=== PATIENT | male | born 1930 | race Hispanic/Latino ===

== ENCOUNTER 2017-03-12 09:19 | Inpatient (IN) | payer MEDICARE ==
[2017-03-12 09:19] VITALS: BMI 39.8
[2017-03-12 10:27] LABS: BASO % 0.4 % (0.0-2.0); EOS % 0.2 % (0.0-4.0); HEMOGLOBIN 12.5 g/dL (12.0-18.0); LYMPH # 1.1 K/uL (1.0-4.3); LYMPH % 16.3 % (20.0-40.0); MEAN CELL VOLUME 89.9 fl (80.0-94.0); MEAN CORPUSCULAR HEMOGLOBIN 28.8 pg (27.0-31.0); MEAN CORPUSCULAR HGB CONC 32.1 g/dL (33.0-37.0); MEAN PLATELET VOLUME 9.9 fl (7.2-11.7); MONO # 0.4 K/uL (0.0-0.8); MONO % 6.3 % (0.0-10.0); NEUT # 5.3 K/uL (1.8-7.0); NEUT % 76.8 % (50.0-75.0); RBC 4.32 Mil/uL (4.40-5.90); RED CELL DISTRIBUTION WIDTH 16.9 % (11.5-14.5); WHITE BLOOD COUNT 6.8 K/uL (4.8-10.8)
[2017-03-12 10:39] LABS: ALB/GLOB RATIO 1.2 (1.0-2.1); ALBUMIN 4.2 g/dL (3.5-5.0); CALCIUM 8.3 mg/dL (8.4-10.2)
[2017-03-12 10:51] LABS: TROPONIN I 0.074 ng/mL (0.00-0.120)
--- NOTE | 2017-03-12 11:18 | RAD ---
HISTORY: WEAKNESS H/O OF CHF COMPARISON: Chest x-ray performed 11/07/14 TECHNIQUE: Chest, one view. FINDINGS: LUNGS: Moderate interstitial prominence may reflect infection or edema. Central vascular congestion. Please note that chest x-ray has limited sensitivity for the detection of pulmonary masses. PLEURA: Probable small left pleural effusion. No definite pneumothorax . CARDIOVASCULAR: Median sternotomy wires, several of which appear discontinuous. Evidence of CABG. Cardiomegaly. OSSEOUS STRUCTURES: Degenerative changes. VISUALIZED UPPER ABDOMEN: Unremarkable. OTHER FINDINGS: None. IMPRESSION: Moderate interstitial prominence may reflect infection or edema. Central vascular congestion. Probable small left pleural effusion. Median sternotomy wires, several of which appear discontinuous. Evidence of CABG. Cardiomegaly.
--- NOTE | 2017-03-12 11:25 | ED PDOC ---
HPI: SOB/CHF/COPD Time Seen by Provider: 03/12/17 09:44 Chief Complaint (Nursing): Shortness Of Breath History Per: Patient History/Exam Limitations: no limitations Onset/Duration Of Symptoms: Gradual Current Symptoms Are (Timing): Still Present Context: pt co shortness of breath, generalized weakness and reproducible chest pain Exacerbating Factor(s): Exertion, Laying Flat Severity: Moderate Similar Symptoms Previously: due to chf Additional History Per: Patient, Family Additional Complaint(s): pt co shortness of breath, generalized weakness and reproducible chest pain x 2 weeks. states he was admitted at [facility] last week for the same problem last week. Past Medical History Reviewed: Historical Data, Nursing Documentation, Vital Signs Vital Signs: Last Vital Signs Temp 97 F L 03/12/17 09:36 Pulse 59 L 03/12/17 13:21 Resp 26 H 03/12/17 13:21 BP 119/70 03/12/17 13:21 Pulse Ox 97 03/12/17 13:22 - Medical History PMH: CHF, COPD, Diabetes, HTN, Hypercholesterolemia - Surgical History Surgical History: CABG, Coronary Stent (x3) - Family History Family History: States: Unknown Family Hx - Living Arrangements Living Arrangements: With Family - Social History Current smoker - smoking cessation education provided: No - Immunization History Hx Tetanus Toxoid Vaccination: No Hx Influenza Vaccination: Yes (06/29/13) Hx Pneumococcal Vaccination: Yes (06/29/13) - Home Medications Home Medications: Ambulatory Orders Medication Instructions Recorded Aspirin [Aspirin] 325 mg PO DAILY 10/31/14 Clopidogrel [Plavix] 75 mg PO DAILY 10/31/14 Furosemide [Furosemide] 20 mg PO DAILY 10/31/14 Gabapentin [Gabapentin] 300 mg PO BID 10/31/14 Insulin Glargine,Hum.rec.anlog 26 unit SC HS 11/01/14 [Lantus] Atorvastatin Calcium [Lipitor] 40 mg PO HS 11/11/14 Nebivolol [Bystolic] 2.5 mg PO DAILY 03/12/17 Tamsulosin [Flomax] 0.4 mg PO DAILY 03/12/17 - Allergies Allergies/Adverse Reactions: Allergies Allergy/AdvReac Type Severity Reaction Status Date / Time No Known Allergies Allergy Verified 03/12/17 09:36 Review of Systems ROS Statement: Except As Marked, All Systems Reviewed And Found Negative Constitutional: Negative for: Fever, Chills Cardiovascular: Positive for: Chest Pain. Negative for: Palpitations Respiratory: Positive for: Shortness of Breath. Negative for: Cough Gastrointestinal: Negative for: Nausea, Vomiting, Abdominal Pain Musculoskeletal: Negative for: Neck Pain Neurological: Negative for: Weakness, Numbness Physical Exam - Reviewed Nursing Documentation Reviewed: Yes Vital Signs Reviewed: Yes - Physical Exam Appears: Positive for: Uncomfortable Head Exam: Positive for: ATRAUMATIC, NORMAL INSPECTION, NORMOCEPHALIC Eye Exam: Positive for: Normal appearance, EOMI, PERRL Neck: Positive for: Normal, Painless ROM, Supple Cardiovascular/Chest: Positive for: Regular Rate, Rhythm, Chest Non Tender, Edema (4+ to shins bl). Negative for: Bradycardia, Tachycardia Respiratory: Positive for: Normal Breath Sounds. Negative for: Decreased Breath Sounds, Accessory Muscle Use, Crackles, Rales, Rhonchi, Stridor, Wheezing Pulses-Radial (L): 2+ Pulses-Radial (R): 2+ Gastrointestinal/Abdominal: Positive for: Normal Exam, Bowel Sounds, Soft. Negative for: Tenderness Back: Positive for: Normal Inspection. Negative for: L CVA Tenderness, R CVA Tenderness Extremity: Positive for: Normal ROM, Pedal Edema, Swelling. Negative for: Calf Tenderness Neurologic/Psych: Positive for: Alert, distribution operation supervisor II-XII, Oriented. Negative for: Motor/Sensory Deficits - Laboratory Results Result Diagrams: 03/12/17 10:15 03/12/17 10:15 - ECG ECG: Positive for: Interpreted By Sd ECG Rhythm: Positive for: Sinus Rhythm, Right Bundle Branch Block. Negative for : ST/T Changes Interpretation Of Abn EKG: rate of 67 abnormal ecg w/o chnage compared to 2014 O2 Sat by Pulse Oximetry: 97 Pulse Ox Interpretation: Normal - Radiology X-Ray: Interpreted by Sd X-Ray Interpretation: Other (mod chf) - Progress ED Course And Treament: will admit to tele per Dr cooper. gave lasiz 20 mg iv. Re-evaluation Time: 12:00 Condition: Improved Disposition - Clinical Impression Clinical Impression: CHF (congestive heart failure) - Patient ED Disposition Is Patient to be Admitted: No Counseled Patient/Family Regarding: Studies Performed, Diagnosis, Need For Followup - Disposition Disposition Time: 12:00 Condition: STABLE - Pt Status Changed To: Hospital Disposition Of: Observation - POA Present On Arrival: None
[2017-03-12 11:55] LABS: INR 1.1 (0.9-1.2); PARTIAL THROMBOPLASTIN TIME 31.3 Seconds (25.6-37.1); PROTHROMBIN TIME 12.4 Seconds (9.8-13.1)
--- NOTE | 2017-03-12 12:57 | CT ---
PROCEDURE: CT HEAD WITHOUT CONTRAST. HISTORY: head trauma COMPARISON: Noncontrast head CT performed 10/31/14 TECHNIQUE: Axial computed tomography images were obtained through the head/brain without intravenous contrast. Radiation dose: Total exam DLP = 1591.88 mGy-cm. This CT exam was performed using one or more of the following dose reduction techniques: Automated exposure control, adjustment of the mA and/or kV according to patient size, and/or use of iterative reconstruction technique. FINDINGS: HEMORRHAGE: No intracranial hemorrhage. BRAIN: Diffuse atrophy with prominence of the ventricles and sulci noted. No mass effect or edema. Bilateral basal ganglia calcifications. Moderate scattered periventricular and subcortical white matter hypodensities, which are nonspecific, but often seen with chronic microvascular ischemic disease. 8 x 5 mm hypodensity within the right cerebellum compatible with chronic infarct. 4 mm lacunar infarct within the left brainstem (series 4, image 19). Please note that MRI with diffusion imaging is more sensitive in the detection of acute ischemic event. VENTRICLES: No hydrocephalus. CALVARIUM: Unremarkable. PARANASAL SINUSES: Mild mucosal thickening of ethmoid air cells. No air-fluid levels. MASTOID AIR CELLS: Clear. OTHER FINDINGS: Partial opacification of bilateral external auditory canals, likely cerumen. IMPRESSION: Moderate scattered nonspecific white matter white matter changes. 8 x 5 mm hypodensity within the right cerebellum compatible with chronic infarct. 4 mm lacunar infarct within the left brainstem
--- NOTE | 2017-03-12 18:17 | CP.PCM.HP ---
History of Present Illness - History of Present Illness History of Present Illness: Patient 86 y/o gentleman presented in ER via EMS with the CC of SOB. He c/o gradual onset of dyspnea with orthopnea and paroxysmal nocturnal dyspnea. Dyspnea at rest and severe leg edema. weight gain . The present dyspnea is worse than previous episodes. He c/o CP, cough, and generalized weakness. He has severe hx of CAD with S/P GABG, HTN, uncontrolled diabetes. Present on Admission - Present on Admission Any Indicators Present on Admission: No Review of Systems - Constitutional Constitutional: Snoring, Weight Gain, Weakness - EENT Eyes: As Per HPI - Cardiovascular Cardiovascular: Chest Pain, Dyspnea, Dyspnea on Exertion, Edema, Lightheadedness , Paroxysmal Nocturnal Dyspnea, Pedal Edema - Respiratory Respiratory: Dyspnea, Dyspnea on Exertion, Chest Congestion - Gastrointestinal Gastrointestinal: Bloating - Musculoskeletal Musculoskeletal: As Per HPI - Integumentary Integumentary: As Per HPI - Neurological Neurological: As Per HPI - Psychiatric Psychiatric: As Per HPI - Endocrine Endocrine: As Per HPI Past Patient History - Past Medical History & Family History Past Medical History?: Yes - Past Social History Smoking Status: Former Smoker - CARDIAC Hx Cardiac Disorders: Yes Hx Hypertension: Yes - PULMONARY Hx Respiratory Disorders: Yes Hx Chronic Obstructive Pulmonary Disease (COPD): Yes - NEUROLOGICAL Hx Neurological Disorder: No - RENAL Hx Chronic Kidney Disease: No - ENDOCRINE/METABOLIC Hx Endocrine Disorders: Yes Hx Diabetes Mellitus Type 2: Yes - HEMATOLOGICAL/ONCOLOGICAL Hx Blood Disorders: No Hx AIDS: No Hx Human Immunodeficiency Virus (HIV): No - INTEGUMENTARY Hx Dermatological Problems: No - MUSCULOSKELETAL/RHEUMATOLOGICAL Hx Musculoskeletal Disorders: Yes Hx Falls: Yes Other/Comment: neuropathy - GASTROINTESTINAL Hx Gastrointestinal Disorders: No - GENITOURINARY/GYNECOLOGICAL Hx Genitourinary Disorders: No - PSYCHIATRIC Hx Psychophysiologic Disorder: No Hx Substance Use: No - SURGICAL HISTORY Hx Surgeries: Yes Hx Coronary Artery Bypass Graft: Yes (2009) Hx Coronary Stent: Yes (x3) - ANESTHESIA Hx Anesthesia: Yes Has any member of the family had a problem w/ anesthesia?: No Meds Allergies/Adverse Reactions: Allergies Allergy/AdvReac Type Severity Reaction Status Date / Time No Known Allergies Allergy Verified 03/12/17 09:36 Physical Exam - Constitutional Appears: In Acute Distress, Chronically Ill - Head Exam Head Exam: ATRAUMATIC - Eye Exam Eye Exam: Normal appearance, PERRL Pupil Exam: NORMAL ACCOMODATION, PERRL - ENT Exam ENT Exam: Mucous Membranes Moist - Neck Exam Neck exam: Positive for: Full Rom - Respiratory Exam Respiratory Exam: Decreased Breath Sounds, Rales, Respiratory Distress - Cardiovascular Exam Cardiovascular Exam: REGULAR RHYTHM, JVD, +S1, +S2 - GI/Abdominal Exam GI & Abdominal Exam: Distended, Soft - Rectal Exam Rectal Exam: Deferred - Extremities Exam Extremities exam: Positive for: pedal edema - Neurological Exam Neurological exam: Alert, CN II-XII Intact, Oriented x3 - Psychiatric Exam Psychiatric exam: Anxious - Skin Skin Exam: Dry, Warm Results - Vital Signs Recent Vital Signs: Last Vital Signs Temp 98.2 F 03/12/17 15:38 Pulse 48 L 03/12/17 15:38 Resp 20 03/12/17 15:49 BP 116/69 03/12/17 15:38 Pulse Ox 94 L 03/12/17 15:38 - Labs Result Diagrams: 03/12/17 10:15 03/12/17 10:15 Labs: Laboratory Results - last 24 hr 03/12/17 16:49 POC Glucose (mg/dL) 91 Assessment & Plan (1) CHF (congestive heart failure) Status: Acute (2) Diabetes 1.5, 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
[2017-03-12] MEDS: Enoxaparin 30 mg Syringe SC SCH (18:37)
[2017-03-12 21:40] LABS: TROPONIN I 0.102 ng/mL (0.00-0.120)
[2017-03-12] MEDS: Insulin Regular 100 units/ml SC SCH (22:25)
[2017-03-12] MEDS: Insulin Detemir 100 Units/ml Inj SC SCH (22:26)
[2017-03-13 00:01] LABS: SQUAMOUS EPITHIAL < 1 /hpf (0-5); URINE BILIRUBIN NEGATIVE (NEGATIVE); URINE BLOOD NEGATIVE (NEGATIVE); URINE CLARITY CLEAR (Clear); URINE COLOR STRAW (YELLOW); URINE GLUCOSE (UA) NEG (Normal); URINE LEUKOCYTE ESTERASE NEG Leu/uL (Negative); URINE NITRATE NEGATIVE (NEGATIVE); URINE PROTEIN NEGATIVE (NEGATIVE); URINE UROBILINOGEN 0.2-1.0 mg/dL (0.2-1.0)
[2017-03-13] MEDS: Insulin Regular 100 units/ml SC SCH ×4 (06:14→23:37)
[2017-03-13 07:20] LABS: CALCIUM 8.5 mg/dL (8.4-10.2)
[2017-03-13] MEDS: Enoxaparin 30 mg Syringe SC SCH (09:02)
--- NOTE | 2017-03-13 10:30 | CP.PCM.PN ---
Subjective - Date & Time of Evaluation Date of Evaluation: 03/13/17 Time of Evaluation: 10:32 - Subjective Subjective: Patient still in SOB on O2 NC. Severely fluid over loaded. In de compensated CHF systolic. Will continue diuresis. Will follow cardiology consult and ECHO. Will repeat CXR. Objective - Vital Signs/Intake and Output Vital Signs (last 24 hours): Temp Pulse Resp BP Pulse Ox 99.1 F 67 18 111/60 93 L 03/13/17 08:00 03/13/17 09:01 03/13/17 08:00 03/13/17 09:03 03/13/17 08:00 Intake and Output: 03/12/17 03/13/17 23:59 11:59 Intake Total 180 Output Total 950 Balance -770 - Medications Medications: Current Medications Aspirin (Aspirin) 325 mg PO DAILY [facility] Last Admin: 03/13/17 09:02 Dose: 325 mg Atorvastatin Calcium (Lipitor) 40 mg PO HS [facility] Last Admin: 03/12/17 21:39 Dose: 40 mg Clopidogrel Bisulfate (Plavix) 75 mg PO DAILY [facility] Last Admin: 03/13/17 09:01 Dose: 75 mg Enoxaparin Sodium (Lovenox) 30 mg SC DAILY [facility] PRN Reason: Protocol Last Admin: 03/13/17 09:02 Dose: 30 mg Furosemide (Lasix) 40 mg IV Q12 [facility] Last Admin: 03/13/17 09:03 Dose: 40 mg Gabapentin (Neurontin) 300 mg PO BID [facility] Last Admin: 03/13/17 09:00 Dose: 300 mg Insulin Detemir (Levemir) 26 units SC [facility] Last Admin: 03/12/17 22:26 Dose: 26 units Insulin Human Regular (Humulin R) 0 units SC ACCU-CHECK [facility] PRN Reason: Protocol Last Admin: 03/13/17 06:14 Dose: Not Given Metoprolol Tartrate (Lopressor) 12.5 mg PO BID [facility] Last Admin: 03/13/17 09:01 Dose: 12.5 mg Tamsulosin HCl (Flomax) 0.4 mg PO DAILY [facility] Last Admin: 03/13/17 09:02 Dose: 0.4 mg - Labs Labs: 03/13/17 05:00 PT 12.4 Seconds (9.8-13.1) 03/12/17 10:15 INR 1.1 (0.9-1.2) 03/12/17 10:15 APTT 31.3 Seconds (25.6-37.1) 03/12/17 10:15 - Constitutional Appears: In Acute Distress, Chronically Ill - Head Exam Head Exam: ATRAUMATIC, NORMAL INSPECTION, NORMOCEPHALIC - Eye Exam Eye Exam: Normal appearance - Neck Exam Neck Exam: Full ROM - Respiratory Exam Respiratory Exam: Decreased Breath Sounds, Prolonged Expiratory Phase, Rales - Cardiovascular Exam Cardiovascular Exam: REGULAR RHYTHM, +S1, +S2 - GI/Abdominal Exam GI & Abdominal Exam: Distended, Soft, Normal Bowel Sounds - Extremities Exam Extremities Exam: Pedal Edema - Neurological Exam Neurological Exam: Alert, Awake, CN II-XII Intact, Oriented x3 - Psychiatric Exam Psychiatric exam: Normal Affect - Skin Skin Exam: Pallor Assessment and Plan (1) CHF (congestive heart failure) Status: Acute (2) Diabetes 1.5, 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
--- NOTE | 2017-03-13 11:29 | RAD ---
PROCEDURE: CHEST RADIOGRAPH, 1 VIEW HISTORY: CHF COMPARISON: 03/12/2017. FINDINGS: LUNGS: There is mild pulmonary venous congestion improved since yesterday and persistent prominent central vasculature. PLEURA: No pneumothorax or pleural fluid seen. CARDIOVASCULAR: There is persistent moderate cardiomegaly. Status post CABG with OSSEOUS STRUCTURES: No significant abnormalities. VISUALIZED UPPER ABDOMEN: Normal. OTHER FINDINGS: None. IMPRESSION: Improving congestive heart failure.
--- NOTE | 2017-03-13 11:41 | CARD ---
APPROVED REPORT EKG Measurement Heart [id number] <Conclusion> Sinus rhythm with 1st degree AV block Left axis deviation Right bundle branch block Possible Lateral infarct, age undetermined Inferior infarct, age undetermined Abnormal ECG
--- NOTE | 2017-03-13 12:35 | CP.PCM.CON ---
History of Present Illness - History of Present Illness History of Present Illness: 86 y/o [place] male h/o CAD S/P Cabg 2008 at [facility], underwent PCI X3 after CABG by Dr. Jerry the most recent one was 2 1/2 years ago, COPD on home O2. Recently hospitalized at [facility] for SOB, Presented with SOB and chest tightness No Fever or chills Review of Systems - Constitutional Constitutional: Weakness - Cardiovascular Cardiovascular: Chest Pain, Dyspnea Past Patient History - Past Medical History & Family History Past Medical History?: Yes - Past Social History Smoking Status: Former Smoker - CARDIAC Hx Cardiac Disorders: Yes (CABG, PCI X3) Hx Heart Attack: Yes Hx Hypertension: Yes - PULMONARY Hx Respiratory Disorders: Yes Hx Chronic Obstructive Pulmonary Disease (COPD): Yes - NEUROLOGICAL Hx Neurological Disorder: No - RENAL Hx Chronic Kidney Disease: No - ENDOCRINE/METABOLIC Hx Endocrine Disorders: Yes Hx Diabetes Mellitus Type 2: Yes - HEMATOLOGICAL/ONCOLOGICAL Hx Blood Disorders: No Hx AIDS: No Hx Human Immunodeficiency Virus (HIV): No - INTEGUMENTARY Hx Dermatological Problems: No - MUSCULOSKELETAL/RHEUMATOLOGICAL Hx Musculoskeletal Disorders: Yes Hx Falls: Yes Other/Comment: neuropathy - GASTROINTESTINAL Hx Gastrointestinal Disorders: No - GENITOURINARY/GYNECOLOGICAL Hx Genitourinary Disorders: No - PSYCHIATRIC Hx Psychophysiologic Disorder: No Hx Substance Use: No - SURGICAL HISTORY Hx Surgeries: Yes Hx Coronary Artery Bypass Graft: Yes (2008) Hx Coronary Stent: Yes (x3) - ANESTHESIA Hx Anesthesia: Yes Has any member of the family had a problem w/ anesthesia?: No Meds Allergies/Adverse Reactions: Allergies Allergy/AdvReac Type Severity Reaction Status Date / Time No Known Allergies Allergy Verified 03/12/17 09:36 - Medications Medications: Current Medications Aspirin (Aspirin) 325 mg PO DAILY [facility] Last Admin: 03/13/17 09:02 Dose: 325 mg Atorvastatin Calcium (Lipitor) 40 mg PO HS [facility] Last Admin: 03/12/17 21:39 Dose: 40 mg Clopidogrel Bisulfate (Plavix) 75 mg PO DAILY [facility] Last Admin: 03/13/17 09:01 Dose: 75 mg Enoxaparin Sodium (Lovenox) 30 mg SC DAILY [facility] PRN Reason: Protocol Last Admin: 03/13/17 09:02 Dose: 30 mg Furosemide (Lasix) 40 mg IV Q12 [facility] Last Admin: 03/13/17 09:03 Dose: 40 mg Gabapentin (Neurontin) 300 mg PO BID [facility] Last Admin: 03/13/17 09:00 Dose: 300 mg Insulin Detemir (Levemir) 26 units SC [facility] Last Admin: 03/12/17 22:26 Dose: 26 units Insulin Human Regular (Humulin R) 0 units SC ACCU-CHECK [facility] PRN Reason: Protocol Last Admin: 03/13/17 11:48 Dose: 2 u Metoprolol Tartrate (Lopressor) 12.5 mg PO BID [facility] Last Admin: 03/13/17 09:01 Dose: 12.5 mg Tamsulosin HCl (Flomax) 0.4 mg PO DAILY [facility] Last Admin: 03/13/17 09:02 Dose: 0.4 mg Results - Vital Signs Recent Vital Signs: Last Vital Signs Temp 98.2 F 03/13/17 12:23 Pulse 58 L 03/13/17 12:23 Resp 20 03/13/17 12:23 BP 121/66 03/13/17 12:23 Pulse Ox 95 03/13/17 12:23 - Labs Result Diagrams: 03/12/17 10:15 03/13/17 05:00 Labs: Laboratory Results - last 24 hr 03/13/17 11:25 POC Glucose (mg/dL) 190 H Assessment & Plan - Assessment and Plan (Free Text) Assessment: Chest pain [place] ruled out CHF, acute diastolic COPD CAD S/P CABG HTN EKG NSR, 1st degree AVB RBBB 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 Last Admin: 03/12/17 21:39 Dose: 40 mg Clopidogrel Bisulfate (Plavix) 75 mg PO DAILY [facility] Last Admin: 03/13/17 09:01 Dose: 75 mg Enoxaparin Sodium (Lovenox) 30 mg SC DAILY [facility] PRN Reason: Protocol Last Admin: 03/13/17 09:02 Dose: 30 mg Furosemide (Lasix) 40 mg IV Q12 [facility] Last Admin: 03/13/17 09:03 Dose: 40 mg Gabapentin (Neurontin) 300 mg PO BID [facility] Last Admin: 03/13/17 09:00 Dose: 300 mg Insulin Detemir (Levemir) 26 units SC [facility] Last Admin: 03/12/17 22:26 Dose: 26 units Insulin Human Regular (Humulin R) 0 units SC ACCU-CHECK [facility] PRN Reason: Protocol Last Admin: 03/13/17 11:48 Dose: 2 u Metoprolol Tartrate (Lopressor) 12.5 mg PO BID [facility] Last Admin: 03/13/17 09:01 Dose: 12.5 mg Tamsulosin HCl (Flomax) 0.4 mg PO DAILY [facility] Last Admin: 03/13/17 09:02 Dose: 0.4 mg I will review Echo Discussed with PMD
[2017-03-13] MEDS: Insulin Detemir 100 Units/ml Inj SC SCH (22:00)
[2017-03-14] MEDS: Insulin Regular 100 units/ml SC SCH ×4 (06:34→22:17)
[2017-03-14 07:32] LABS: CALCIUM 8.3 mg/dL (8.4-10.2)
[2017-03-14] MEDS: Enoxaparin 30 mg Syringe SC SCH (09:22)
--- NOTE | 2017-03-14 10:29 | CP.PCM.PN ---
Subjective - Date & Time of Evaluation Date of Evaluation: 03/14/17 Time of Evaluation: 10:26 - Subjective Subjective: SOB improved , no C/P Objective - Vital Signs/Intake and Output Vital Signs (last 24 hours): Temp Pulse Resp BP Pulse Ox 98.4 F 72 20 118/64 96 03/14/17 05:00 03/14/17 09:21 03/14/17 05:00 03/14/17 09:22 03/14/17 05:00 Intake and Output: 03/14/17 03/14/17 06:59 18:59 Intake Total 240 Balance 240 - Medications Medications: Current Medications Aspirin (Aspirin) 325 mg PO DAILY [facility] Last Admin: 03/14/17 09:25 Dose: 325 mg Atorvastatin Calcium (Lipitor) 40 mg PO HS [facility] Last Admin: 03/13/17 21:52 Dose: 40 mg Clopidogrel Bisulfate (Plavix) 75 mg PO DAILY [facility] Last Admin: 03/14/17 09:21 Dose: 75 mg Enoxaparin Sodium (Lovenox) 30 mg SC DAILY [facility] PRN Reason: Protocol Last Admin: 03/14/17 09:22 Dose: 30 mg Furosemide (Lasix) 40 mg IV Q12 [facility] Last Admin: 03/14/17 09:22 Dose: 40 mg Gabapentin (Neurontin) 300 mg PO BID [facility] Last Admin: 03/14/17 09:21 Dose: 300 mg Insulin Detemir (Levemir) 26 units SC [facility] Last Admin: 03/13/17 22:00 Dose: Not Given Insulin Human Regular (Humulin R) 0 units SC ACCU-CHECK [facility] PRN Reason: Protocol Last Admin: 03/14/17 06:34 Dose: Not Given Metoprolol Tartrate (Lopressor) 12.5 mg PO BID [facility] Last Admin: 03/14/17 09:21 Dose: 12.5 mg Tamsulosin HCl (Flomax) 0.4 mg PO DAILY [facility] Last Admin: 03/14/17 09:20 Dose: 0.4 mg - Labs Labs: 03/14/17 05:05 PT 12.4 Seconds (9.8-13.1) 03/12/17 10:15 INR 1.1 (0.9-1.2) 03/12/17 10:15 APTT 31.3 Seconds (25.6-37.1) 03/12/17 10:15 - Constitutional Appears: Well - Head Exam Head Exam: NORMOCEPHALIC - Neck Exam Neck Exam: Full ROM - Respiratory Exam Respiratory Exam: Decreased Breath Sounds, Rhonchi - GI/Abdominal Exam GI & Abdominal Exam: Normal Bowel Sounds - Extremities Exam Extremities Exam: Pedal Edema Assessment and Plan - Assessment and Plan (Free Text) Assessment: CHF CAD Cont current IV lasix,lipitor, lpressor, lovenox, plavis Discussed with PMD
--- NOTE | 2017-03-14 10:50 | US ---
HISTORY: r/u ascites COMPARISON: 11/02/2014 TECHNIQUE: Sonographic evaluation of the abdomen. FINDINGS: LIVER: Measures 15.1 cm. Hepatopedal blood flow. Fatty infiltration manifest ultrasonographically as increased echogenicity of the liver parenchyma. No mass. No intrahepatic bile duct dilatation. GALLBLADDER: Unremarkable. No gallstones. COMMON BILE DUCT: Measures 5.6 mm. No stones. No dilatation. PANCREAS: Obscured by overlying bowel gas. Non diagnostic assessment of the pancreas. RIGHT KIDNEY: Measures 4.9 x 14.4cm. Cortical atrophy. Incidental finding(s): Lower pole cyst 4.4 x 4.7 cm with septation. Upper pole cyst 3.5 cm. LEFT KIDNEY: Measures 5.1 x 10.9 Cm. Renal cortical atrophy. No calculus, mass, or hydronephrosis.Incidental finding(s): Multiple simple renal cysts. SPLEEN: Normal in size and contour. No mass. AORTA: No aneurysmal dilatation. IVC: Unremarkable. OTHER FINDINGS: None. IMPRESSION: No acute findings related to/accounting for the clinical presentation. Limitations of the current examination suboptimal visualization the gallbladder, nonvisualization of the pancreas. Simple and complex renal cysts identified on a prior CT scan 11/02/2014.
--- NOTE | 2017-03-14 11:56 | PQF GENQUE ---
Dr. Cabral, Please specify the type of heart failure in your progress notes: Combined systolic and diastolic Diastolic Systolic Other (please specify) OR: Clinically unable to determine 03/13/2017: Attending note: in decompensated CHF systolic versus 03/13/2017:Cardiology note: CHF, acute diastolic This form is a permanent part of the medical record Clarification of your documentation is requested to better reflect the severity of illness and intensity of treatment of your patient. Indicators present [] Specify: [X]Systolic [] Specify: [] [] Specify: [] [] Specify: [] Location in the medical record that reflects the above clinical findings: [] Treatment Provided: [] PHYSICIAN'S RESPONSE Based on your medical judgment of the clinical indicators outlined above please clarify the following: [x] Practitioner response [] If unable to determine, please check the box, sign and date. Present On Admission (POA) Indicator: [x] Present at the time of admission [] Not present at the time of admission [] Clinically Undetermined In responding to this query, please exercise your independent professional judgment. The fact that a question is asked does not imply that any particular answer is desired or expected. Thank you for your clarification on this documentation. If you have any questions please call. * Thank you, Gloria Whittaker RN BSN ext. #[phone] (ext. #[phone] out of service at this time ) ZITA
--- NOTE | 2017-03-14 12:01 | PQF GENQUE ---
Dr. Cabral, In agreement with the BMI:40.9 listed in the EMR? If in agreement please add the BMI to your progress note OR:Unable to determine OR: Disagree RD:consult pending This form is a permanent part of the medical record Clarification of your documentation is requested to better reflect the severity of illness and intensity of treatment of your patient. Indicators present [] Specify: [x] Morbid obesity [] Specify: [] [] Specify: [] [] Specify: [] Location in the medical record that reflects the above clinical findings: [] Treatment Provided: [] PHYSICIAN'S RESPONSE Based on your medical judgment of the clinical indicators outlined above please clarify the following: [x] Practitioner response [] If unable to determine, please check the box, sign and date. Present On Admission (POA) Indicator: [x] Present at the time of admission [] Not present at the time of admission [] Clinically Undetermined In responding to this query, please exercise your independent professional judgment. The fact that a question is asked does not imply that any particular answer is desired or expected. Thank you for your clarification on this documentation. If you have any questions please call. * Thank you, Gloria Whittaker RN BSN ext. #[phone] MTDD
--- NOTE | 2017-03-14 12:16 | PQF GENQUE ---
Dr Cabral, Is there an associated diagnosis to go along with the following labs: BUN: 26->24->23 Creatinine:1.8->1.8->1.9 Est GFR (Af Amer/Non-Af Amer):44/36->44/36-.41/34 OR: Disagree OR; Other explanation of clinical findings Current diagnoses include: Acute CHF:receiving Lasix IV q 12 hrs. This form is a permanent part of the medical record Clarification of your documentation is requested to better reflect the severity of illness and intensity of treatment of your patient. Indicators present [] Specify: [x]renal failure [] Specify: [] [] Specify: [] [] Specify: [] Location in the medical record that reflects the above clinical findings: [] Treatment Provided: [] PHYSICIAN'S RESPONSE Based on your medical judgment of the clinical indicators outlined above please clarify the following: [x] Practitioner response [] If unable to determine, please check the box, sign and date. Present On Admission (POA) Indicator: [x] Present at the time of admission [] Not present at the time of admission [] Clinically Undetermined In responding to this query, please exercise your independent professional judgment. The fact that a question is asked does not imply that any particular answer is desired or expected. Thank you for your clarification on this documentation. If you have any questions please call. * Thank you, Gloria Whittaker RN BSN ext. #[phone] MTDD
--- NOTE | 2017-03-14 12:34 | CP.PCM.PN ---
Subjective - Date & Time of Evaluation Date of Evaluation: 03/14/17 Time of Evaluation: 12:40 - Subjective Subjective: Patient still in dyspnea on 3 L NC, severe dyspnea on minimal exertion, fatigue , edema persistent and severe and massive. Objective - Vital Signs/Intake and Output Vital Signs (last 24 hours): Temp Pulse Resp BP Pulse Ox 98.4 F 72 20 118/64 96 03/14/17 05:00 03/14/17 09:21 03/14/17 05:00 03/14/17 09:22 03/14/17 05:00 - Medications Medications: Current Medications Aspirin (Aspirin) 325 mg PO DAILY [facility] Last Admin: 03/14/17 09:25 Dose: 325 mg Atorvastatin Calcium (Lipitor) 40 mg PO HS [facility] Last Admin: 03/13/17 21:52 Dose: 40 mg Clopidogrel Bisulfate (Plavix) 75 mg PO DAILY [facility] Last Admin: 03/14/17 09:21 Dose: 75 mg Enoxaparin Sodium (Lovenox) 30 mg SC DAILY [facility] PRN Reason: Protocol Last Admin: 03/14/17 09:22 Dose: 30 mg Furosemide (Lasix) 40 mg IV Q12 [facility] Last Admin: 03/14/17 09:22 Dose: 40 mg Gabapentin (Neurontin) 300 mg PO BID [facility] Last Admin: 03/14/17 09:21 Dose: 300 mg Insulin Detemir (Levemir) 26 units SC [facility] Last Admin: 03/13/17 22:00 Dose: Not Given Insulin Human Regular (Humulin R) 0 units SC ACCU-CHECK [facility] PRN Reason: Protocol Last Admin: 03/14/17 06:34 Dose: Not Given Metoprolol Tartrate (Lopressor) 12.5 mg PO BID [facility] Last Admin: 03/14/17 09:21 Dose: 12.5 mg Tamsulosin HCl (Flomax) 0.4 mg PO DAILY [facility] Last Admin: 03/14/17 09:20 Dose: 0.4 mg - Labs Labs: 03/14/17 05:05 PT 12.4 Seconds (9.8-13.1) 03/12/17 10:15 INR 1.1 (0.9-1.2) 03/12/17 10:15 APTT 31.3 Seconds (25.6-37.1) 03/12/17 10:15 - Constitutional Appears: In Acute Distress, Chronically Ill - Eye Exam Eye Exam: EOMI, Normal appearance, PERRL Pupil Exam: PERRL - ENT Exam ENT Exam: Mucous Membranes Moist - Neck Exam Neck Exam: Full ROM - Respiratory Exam Respiratory Exam: Decreased Breath Sounds, Rales - Cardiovascular Exam Cardiovascular Exam: REGULAR RHYTHM, +S1, +S2, Murmur - GI/Abdominal Exam GI & Abdominal Exam: Distended, Soft - Extremities Exam Extremities Exam: Pedal Edema - Neurological Exam Neurological Exam: Alert, Awake, CN II-XII Intact, Oriented x3 - Psychiatric Exam Psychiatric exam: Anxious Assessment and Plan (1) CHF (congestive heart failure) Status: Acute (2) Diabetes 1.5, 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 Consider TCU when stable
--- NOTE | 2017-03-14 13:04 | CARD ---
APPROVED REPORT EXAM: Two-dimensional and M-mode echocardiogram with Doppler and color Doppler. Other Information Quality : AverageRhythm : NSR INDICATION Congestive Heart Failure Surgery/Intervention CABG: Status/Post Intervention: Stent 2D DIMENSIONS IVSd1.49 (0.7-1.1cm)LVDd3.62 (3.9-5.9cm) LVOT Diameter1.55 (1.8-2.4cm)PWd1.29 (0.7-1.1cm) IVSs1.85 (0.8-1.2cm)LVDs1.89 (2.5-4.0cm) FS (%) 47.9 %PWs1.76 (0.8-1.2cm) M-Mode DIMENSIONS Left Atrium (MM)5.54 (2.5-4.0cm)IVSd1.25 (0.7-1.1cm) Aortic Root3.32 (2.2-3.7cm)LVDd4.77 (4.0-5.6cm) Aortic Cusp Exc.1.54 (1.5-2.0cm)PWd1.09 (0.7-1.1cm) IVSs2.06 cmFS (%) 42 % LVDs2.79 (2.0-3.8cm)PWs1.62 cm Aortic Valve AoV Peak Eddzoeww450.1cm/sAoV VTI62.0cmAO Peak GR.29mmHg LVOT Peak Wszokqws47.9cm/sLVOT VTI21.68cmAO Mean GR.17mmHg ERIK (VMAX)0.65nj3CPN (VTI)0.31cm2 Mitral Valve MV E Pducbxoh862.5cm/sMV DECEL TFJO088ivWN A Owysuyln580.2cm/s MV KMI56ucN/A ratio0.9MVA (PHT)2.67cm2 TDI E/Lateral E'0.0E/Medial E'0.0 Tricuspid Valve TR Peak Wtymyqoq829hz/sRAP MPZPLFGW30slHfBP Peak Gr.33mmHg TIEW46lbRa LEFT VENTRICLE The left ventricle is normal size. There is mild concentric left ventricular hypertrophy. The left ventricular function is normal. The left ventricular ejection fraction is 55% There is normal LV segmental wall motion. Transmitral Doppler flow pattern is Grade II-pseudonormal filling dynamics. No left ventricle thrombus noted on this study. There is no ventricular septal defect visualized. There is no left ventricular aneurysm. There is no mass noted in the left ventricle. RIGHT VENTRICLE The right ventricle is normal size. There is normal right ventricular wall thickness. The right ventricular systolic function is normal. ATRIA The left atrium size is normal. The right atrium size is normal. The interatrial septum is intact with no evidence for an atrial septal defect. AORTIC VALVE The aortic valve is moderately to severely calcified. No aortic regurgitation is present. There is mild to moderate valvular aortic stenosis. Calculated aortic valve area is 1.2 cm2 with maximum pressure gradient of 29 mmHg and mean pressure gradient of 17 mmHg. There is no aortic valvular vegetation. MITRAL VALVE Mitral annular calcification is moderate to severe. There is no evidence of mitral valve prolapse. There is no mitral valve stenosis. There is no mitral valve regurgitation noted. TRICUSPID VALVE The tricuspid valve is normal in structure and function. There is trace to mild tricuspid regurgitation. Right ventricular systolic pressure is estimated at 30-40 mmHg. There is no tricuspid valve prolapse or vegetation. There is no tricuspid valve stenosis. PULMONIC VALVE The pulmonary valve is normal in structure and function. There is no pulmonic valvular regurgitation. There is no pulmonic valvular stenosis. GREAT VESSELS The aortic root is normal in size. The ascending aorta is normal in size. The IVC is normal in size and collapses >50% with inspiration. PERICARDIAL EFFUSION The pericardium appears normal. There is no pleural effusion. <Conclusion> Normal LV Systolic Function Moderate Aortic Stenosis ERIK 1.2 cm2 Mild Concentric LVH
[2017-03-14] MEDS: Insulin Detemir 100 Units/ml Inj SC SCH (22:18)
[2017-03-15] MEDS: Insulin Regular 100 units/ml SC SCH ×3 (09:09→23:36)
[2017-03-15] MEDS: Enoxaparin 30 mg Syringe SC SCH (09:10)
--- NOTE | 2017-03-15 09:32 | CP.PCM.PN ---
Subjective - Date & Time of Evaluation Date of Evaluation: 03/15/17 Time of Evaluation: 09:33 - Subjective Subjective: Patient still in dyspnea on 3 L NC, severe dyspnea on minimal exertion, fatigue , edema persistent and severe and massive. Same improvement since yesterday. He can not tolerated an increase of furosemide because of hypotensive response to it. Will continue present rx. For possible TCU in am. Objective - Vital Signs/Intake and Output Vital Signs (last 24 hours): Temp Pulse Resp BP Pulse Ox 98.2 F 73 18 117/62 98 03/15/17 08:00 03/15/17 09:10 03/15/17 08:00 03/15/17 09:10 03/15/17 08:00 Intake and Output: 03/14/17 03/15/17 23:59 11:59 Intake Total 200 Output Total 500 Balance -300 - Medications Medications: Current Medications Aspirin (Aspirin) 325 mg PO DAILY [facility] Last Admin: 03/15/17 09:13 Dose: 325 mg Atorvastatin Calcium (Lipitor) 40 mg PO [facility] Last Admin: 03/14/17 22:13 Dose: 40 mg Clopidogrel Bisulfate (Plavix) 75 mg PO DAILY [facility] Last Admin: 03/15/17 09:11 Dose: 75 mg Enoxaparin Sodium (Lovenox) 30 mg SC DAILY [facility] PRN Reason: Protocol Last Admin: 03/15/17 09:10 Dose: 30 mg Furosemide (Lasix) 40 mg IV Q12 [facility] Last Admin: 03/15/17 09:09 Dose: 40 mg Gabapentin (Neurontin) 300 mg PO BID [facility] Last Admin: 03/15/17 09:11 Dose: 300 mg Insulin Detemir (Levemir) 26 units SC [facility] Last Admin: 03/14/17 22:18 Dose: 26 units Insulin Human Regular (Humulin R) 0 units SC ACCU-CHECK [facility] PRN Reason: Protocol Last Admin: 03/15/17 09:09 Dose: 2 u Metoprolol Tartrate (Lopressor) 12.5 mg PO BID [facility] Last Admin: 03/15/17 09:10 Dose: 12.5 mg Tamsulosin HCl (Flomax) 0.4 mg PO DAILY [facility] Last Admin: 03/15/17 09:09 Dose: 0.4 mg - Labs Labs: 03/14/17 05:05 PT 12.4 Seconds (9.8-13.1) 03/12/17 10:15 INR 1.1 (0.9-1.2) 03/12/17 10:15 APTT 31.3 Seconds (25.6-37.1) 03/12/17 10:15 - Constitutional Appears: Chronically Ill - Head Exam Head Exam: ATRAUMATIC, NORMAL INSPECTION, NORMOCEPHALIC - Eye Exam Eye Exam: Normal appearance Pupil Exam: PERRL - ENT Exam ENT Exam: Mucous Membranes Moist - Neck Exam Neck Exam: Full ROM - Respiratory Exam Respiratory Exam: Decreased Breath Sounds, Prolonged Expiratory Phase, Rales - Cardiovascular Exam Cardiovascular Exam: REGULAR RHYTHM, +S1, +S2 - GI/Abdominal Exam GI & Abdominal Exam: Distended, Normal Bowel Sounds - Extremities Exam Extremities Exam: Pedal Edema - Neurological Exam Neurological Exam: Alert, Awake, CN II-XII Intact, Oriented x3 - Psychiatric Exam Psychiatric exam: Anxious Assessment and Plan (1) CHF (congestive heart failure) Status: Acute (2) Diabetes 1.5, 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
[2017-03-15 11:13] LABS: CALCIUM 8.6 mg/dL (8.4-10.2)
[2017-03-15] MEDS: Insulin Detemir 100 Units/ml Inj SC SCH (23:51)
[2017-03-16] MEDS: Insulin Regular 100 units/ml SC SCH ×3 (06:25→16:57)
[2017-03-16 10:43] LABS: CALCIUM 8.8 mg/dL (8.4-10.2)
--- NOTE | 2017-03-16 14:09 | CP.PCM.PN ---
Subjective - Date & Time of Evaluation Date of Evaluation: 03/16/17 Time of Evaluation: 14:08 - Subjective Subjective: SOB improved, no chest pain Objective - Vital Signs/Intake and Output Vital Signs (last 24 hours): Temp Pulse Resp BP Pulse Ox 98.1 F 63 18 127/74 92 L 03/16/17 13:00 03/16/17 13:00 03/16/17 13:00 03/16/17 13:00 03/16/17 13:00 - Medications Medications: Current Medications Aspirin (Aspirin) 325 mg PO DAILY [facility] Last Admin: 03/16/17 09:53 Dose: 325 mg Atorvastatin Calcium (Lipitor) 40 mg PO [facility] Last Admin: 03/15/17 23:50 Dose: 40 mg Clopidogrel Bisulfate (Plavix) 75 mg PO DAILY [facility] Last Admin: 03/16/17 09:50 Dose: 75 mg Gabapentin (Neurontin) 300 mg PO BID [facility] Last Admin: 03/16/17 09:50 Dose: 300 mg Insulin Detemir (Levemir) 26 units SC [facility] Last Admin: 03/15/17 23:51 Dose: 26 units Insulin Human Regular (Humulin R) 0 units SC ACCU-CHECK [facility] PRN Reason: Protocol Last Admin: 03/16/17 12:40 Dose: 6 units Metoprolol Tartrate (Lopressor) 12.5 mg PO BID [facility] Last Admin: 03/16/17 09:49 Dose: Not Given Tamsulosin HCl (Flomax) 0.4 mg PO DAILY [facility] Last Admin: 03/16/17 09:50 Dose: 0.4 mg - Labs Labs: 03/16/17 09:30 PT 12.4 Seconds (9.8-13.1) 03/12/17 10:15 INR 1.1 (0.9-1.2) 03/12/17 10:15 APTT 31.3 Seconds (25.6-37.1) 03/12/17 10:15 - Head Exam Head Exam: NORMOCEPHALIC - Eye Exam Eye Exam: Normal appearance - ENT Exam ENT Exam: Normal Exam - Neck Exam Neck Exam: Normal Inspection - Respiratory Exam Respiratory Exam: NORMAL BREATHING PATTERN - Cardiovascular Exam Cardiovascular Exam: REGULAR RHYTHM - Extremities Exam Extremities Exam: Pedal Edema Assessment and Plan - Assessment and Plan (Free Text) Assessment: CAF exacerbation CKD CAD S/P CABG COPD Plan: Cont.Aspirin (Aspirin) 325 mg PO DAILY [facility] Last Admin: 03/16/17 09:53 Dose: 325 mg Atorvastatin Calcium (Lipitor) 40 mg PO HS [facility] Last Admin: 03/15/17 23:50 Dose: 40 mg Clopidogrel Bisulfate (Plavix) 75 mg PO DAILY [facility] Last Admin: 03/16/17 09:50 Dose: 75 mg Gabapentin (Neurontin) 300 mg PO BID [facility] Last Admin: 03/16/17 09:50 Dose: 300 mg Insulin Detemir (Levemir) 26 units SC [facility] Last Admin: 03/15/17 23:51 Dose: 26 units Insulin Human Regular (Humulin R) 0 units SC ACCU-CHECK [facility] PRN Reason: Protocol Last Admin: 03/16/17 12:40 Dose: 6 units Metoprolol Tartrate (Lopressor) 12.5 mg PO BID [facility] Last Admin: 03/16/17 09:49 Dose: Not Given Tamsulosin HCl (Flomax) 0.4 mg PO DAILY [facility] Last Admin: 03/16/17 09:50 Dose: 0.4 mg Reduce Lasix to 40 mg IVP daily
[2017-03-16 15:32] VITALS: RESP 20
--- NOTE | 2017-03-16 18:25 | CP.PCM.DIS ---
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 mg/g Status: Chronic Hospital Course - Lab Results Lab Results: Most Recent Lab Values WBC 6.8 K/uL (4.8-10.8) 03/12/17 10:15 RBC 4.32 Mil/uL (4.40-5.90) L 03/12/17 10:15 Hgb 12.5 g/dL (12.0-18.0) 03/12/17 10:15 Hct 38.9 % (35.0-51.0) 03/12/17 10:15 MCV 89.9 fl (80.0-94.0) 03/12/17 10:15 MCH 28.8 pg (27.0-31.0) 03/12/17 10:15 MCHC 32.1 g/dL (33.0-37.0) L 03/12/17 10:15 RDW 16.9 % (11.5-14.5) H 03/12/17 10:15 Plt Count 156 K/uL (130-400) 03/12/17 10:15 MPV 9.9 fl (7.2-11.7) 03/12/17 10:15 Neut % (Auto) 76.8 % (50.0-75.0) H 03/12/17 10:15 Lymph % (Auto) 16.3 % (20.0-40.0) L 03/12/17 10:15 [place] % (Auto) 6.3 % (0.0-10.0) 03/12/17 10:15 Eos % (Auto) 0.2 % (0.0-4.0) 03/12/17 10:15 Baso % (Auto) 0.4 % (0.0-2.0) 03/12/17 10:15 Neut # 5.3 K/uL (1.8-7.0) 03/12/17 10:15 Lymph # 1.1 K/uL (1.0-4.3) 03/12/17 10:15 [place] # 0.4 K/uL (0.0-0.8) 03/12/17 10:15 Eos # 0.0 K/uL (0.0-0.7) 03/12/17 10:15 Baso # 0.0 K/uL (0.0-0.2) 03/12/17 10:15 PT 12.4 Seconds (9.8-13.1) 03/12/17 10:15 INR 1.1 (0.9-1.2) 03/12/17 10:15 APTT 31.3 Seconds (25.6-37.1) 03/12/17 10:15 Sodium 141 mmol/l (132-148) 03/16/17 09:30 Potassium 4.1 MMOL/L (3.6-5.0) 03/16/17 09:30 Chloride 96 mmol/L (98-107) L 03/16/17 09:30 Carbon Dioxide 35 mmol/L (22-30) H 03/16/17 09:30 Anion Gap 14 (10-20) 03/16/17 09:30 BUN 26 mg/dl (9-20) H 03/16/17 09:30 Creatinine 1.7 mg/dL (0.8-1.5) H 03/16/17 09:30 Est GFR ( Amer) 47 03/16/17 09:30 Est GFR (Non-Af Amer) 39 03/16/17 09:30 POC Glucose (mg/dL) 301 mg/dL (65-110) H 03/16/17 15:43 Random Glucose 233 mg/dL (75-110) H 03/16/17 09:30 Hemoglobin A1c 9.8 % (4.2-6.5) H 03/12/17 20:39 Calcium 8.8 mg/dL (8.4-10.2) 03/16/17 09:30 Total Bilirubin 1.0 mg/dl (0.2-1.3) 03/12/17 10:15 AST 79 U/L (17-59) H D 03/12/17 10:15 ALT 90 U/L (21-72) H D 03/12/17 10:15 Alkaline Phosphatase 87 U/L (38-126) 03/12/17 10:15 Troponin I 0.1020 ng/mL (0.00-0.120) 03/12/17 20:39 NT-Pro-B Natriuret Pep 2200 pg/ml (0-900) H 03/12/17 20:39 Total Protein 7.6 G/DL (6.3-8.2) 03/12/17 10:15 Albumin 4.2 g/dL (3.5-5.0) 03/12/17 10:15 Globulin 3.4 gm/dL (2.2-3.9) 03/12/17 10:15 Albumin/Globulin Ratio 1.2 (1.0-2.1) 03/12/17 10:15 TSH 3rd Generation 1.58 mIU/ML (0.46-4.68) 03/12/17 20:39 Urine Color Straw (YELLOW) 03/12/17 23:22 Urine Clarity Clear (Clear) 03/12/17 23:22 Urine pH 7.0 (5.0-8.0) 03/12/17 23:22 Ur Specific [place] < 1.005 (1.003-1.030) 03/12/17 23:22 Urine Protein Negative mg/dL (NEGATIVE) 03/12/17 23:22 Urine Glucose (UA) Neg mg/dL (Normal) 03/12/17 23:22 Urine Ketones Negative mg/dL (NEGATIVE) 03/12/17 23:22 Urine Blood Negative (NEGATIVE) 03/12/17 23:22 Urine Nitrate Negative (NEGATIVE) 03/12/17 23:22 Urine Bilirubin Negative (NEGATIVE) 03/12/17 23:22 Urine Urobilinogen 0.2-1.0 mg/dL (0.2-1.0) 03/12/17 23:22 Ur Leukocyte Esterase Neg [place]/uL (Negative) 03/12/17 23:22 Ur Squamous Epith Cells < 1 /hpf (0-5) 03/12/17 23:22 - Hospital Course Hospital Course: Patient with CHF, , DM2, renal failure, debility. Presented with severe decompensated systolic and diastolic failure. Responded to rx. For TCU Discharge Exam - Head Exam Head Exam: ATRAUMATIC, NORMAL INSPECTION, NORMOCEPHALIC - Eye Exam Eye Exam: EOMI, Normal appearance - ENT Exam ENT Exam: Mucous Membranes Moist - Neck Exam Neck exam: Full Rom - Respiratory Exam Respiratory Exam: Decreased Breath Sounds, Clear to PA & Lateral - Cardiovascular Exam Cardiovascular Exam: REGULAR RHYTHM, +S1, +S2 - GI/Abdominal Exam GI & Abdominal Exam: Normal Bowel Sounds - Extremities Exam Extremities exam: pedal edema - Neurological Exam Neurological exam: Alert, CN II-XII Intact, Oriented x3, Reflexes Normal - Psychiatric Exam Psychiatric exam: Normal Affect - Skin Skin Exam: Normal Color Discharge Plan - Follow Up Plan Condition: GUARDED Disposition: TRANSF TO SNF
[2017-03-16 19:10] VITALS: BP 111/67; PULSE 69; TEMP 98.4; O2SAT 95
== END 2017-03-16 20:55 | DRG 291 ==
LOC: H.ER 09:19 → H.ERHOLD 13:28 → H.TEL 14:57 → OBSVTOIN 03-13 10:27 → H.TEL 03-14 10:41
PROVIDERS: ADMIT Internal Medicine; ATTEND Internal Medicine
DX: I13.0 Hypertensive heart and chronic kidney disease with heart failure and stage 1 through stage 4 chronic kidney disease, or unspecified chronic kidney disease (principal); I50.43 Acute on chronic combined systolic (congestive) and diastolic (congestive) heart failure; E11.21 Type 2 diabetes mellitus with diabetic nephropathy; E11.40 Type 2 diabetes mellitus with diabetic neuropathy, unspecified; Z68.41 Body mass index [BMI] 40.0-44.9, adult; N18.3 Chronic kidney disease, stage 3 (moderate); J44.9 Chronic obstructive pulmonary disease, unspecified; I35.0 Nonrheumatic aortic (valve) stenosis; E66.01 Morbid (severe) obesity due to excess calories; E11.22 Type 2 diabetes mellitus with diabetic chronic kidney disease; I44.0 Atrioventricular block, first degree; I45.10 Unspecified right bundle-branch block; I25.10 Atherosclerotic heart disease of native coronary artery without angina pectoris; I25.2 Old myocardial infarction; E78.00 Pure hypercholesterolemia, unspecified; Z99.81 Dependence on supplemental oxygen; Z95.1 Presence of aortocoronary bypass graft; Z95.5 Presence of coronary angioplasty implant and graft; Z87.891 Personal history of nicotine dependence; Z79.82 Long term (current) use of aspirin; Z79.02 Long term (current) use of antithrombotics/antiplatelets

== ENCOUNTER 2017-03-16 18:42 | Inpatient (IN) | payer OTHER, BC ==
[2017-03-16 19:32] VITALS: BMI 40.1
[2017-03-16] MEDS: Insulin Detemir 100 Units/ml Inj SC SCH (23:01)
[2017-03-17] MEDS: Insulin Regular 100 units/ml SC SCH ×5 (00:11→22:02)
[2017-03-17 06:23] LABS: CALCIUM 8.6 mg/dL (8.4-10.2)
--- NOTE | 2017-03-17 12:14 | CP.PCM.HP ---
History of Present Illness - History of Present Illness History of Present Illness: Patient 86 y/o gentleman presented in ER via EMS with the CC of SOB. He c/o gradual onset of dyspnea with orthopnea and paroxysmal nocturnal dyspnea. Dyspnea at rest and severe leg edema. weight gain . The present dyspnea is worse than previous episodes. He c/o CP, cough, and generalized weakness. He has severe hx of CAD with S/P GABG, HTN, uncontrolled diabetes. He responded for now in TCU. Present on Admission - Present on Admission Any Indicators Present on Admission: No Review of Systems - Constitutional Constitutional: As Per HPI - EENT Eyes: As Per HPI Ears: As Per HPI - Cardiovascular Cardiovascular: As Per HPI - Respiratory Respiratory: As Per HPI - Gastrointestinal Gastrointestinal: As Per HPI - Musculoskeletal Musculoskeletal: As Per HPI - Neurological Neurological: As Per HPI Past Patient History - Past Medical History & Family History Past Medical History?: Yes - Past Social History Smoking Status: Former Smoker - CARDIAC Hx Cardiac Disorders: Yes (CABG, PCI X3) Hx Heart Attack: Yes Hx Hypertension: Yes - PULMONARY Hx Respiratory Disorders: Yes Hx Chronic Obstructive Pulmonary Disease (COPD): Yes - NEUROLOGICAL Hx Neurological Disorder: No - RENAL Hx Chronic Kidney Disease: No - ENDOCRINE/METABOLIC Hx Endocrine Disorders: Yes Hx Diabetes Mellitus Type 2: Yes - HEMATOLOGICAL/ONCOLOGICAL Hx Blood Disorders: No Hx AIDS: No Hx Human Immunodeficiency Virus (HIV): No - INTEGUMENTARY Hx Dermatological Problems: No - MUSCULOSKELETAL/RHEUMATOLOGICAL Hx Musculoskeletal Disorders: Yes Hx Falls: Yes Other/Comment: neuropathy - GASTROINTESTINAL Hx Gastrointestinal Disorders: No - GENITOURINARY/GYNECOLOGICAL Hx Genitourinary Disorders: No - PSYCHIATRIC Hx Psychophysiologic Disorder: No Hx Substance Use: No - SURGICAL HISTORY Hx Surgeries: Yes Hx Coronary Artery Bypass Graft: Yes (2009) Hx Coronary Stent: Yes (x3) - ANESTHESIA Hx Anesthesia: Yes Hx Anesthesia Reactions: No Meds Allergies/Adverse Reactions: Allergies Allergy/AdvReac Type Severity Reaction Status Date / Time No Known Allergies Allergy Verified 03/12/17 09:36 Physical Exam - Constitutional Appears: Chronically Ill - Head Exam Head Exam: ATRAUMATIC, NORMAL INSPECTION, NORMOCEPHALIC - Eye Exam Eye Exam: EOMI, Normal appearance - ENT Exam ENT Exam: Mucous Membranes Moist - Neck Exam Neck exam: Positive for: Full Rom - Respiratory Exam Respiratory Exam: Decreased Breath Sounds, Clear to Auscultation Bilateral - Cardiovascular Exam Cardiovascular Exam: REGULAR RHYTHM, +S1, +S2 - GI/Abdominal Exam GI & Abdominal Exam: Diminished Bowel Sounds, Normal Bowel Sounds - Extremities Exam Extremities exam: Positive for: pedal edema - Neurological Exam Neurological exam: Alert, CN II-XII Intact, Oriented x3, Reflexes Normal - Psychiatric Exam Psychiatric exam: Normal Affect Results - Vital Signs Recent Vital Signs: Last Vital Signs Temp 97.5 F L 03/17/17 08:00 Pulse 72 03/17/17 08:59 Resp 20 03/17/17 08:00 BP 125/65 03/17/17 08:59 Pulse Ox 98 03/17/17 08:00 - Labs Result Diagrams: 03/17/17 06:05 Labs: Laboratory Results - last 24 hr 03/16/17 03/17/17 03/17/17 21:37 06:00 06:05 Sodium 142 Potassium 4.0 Chloride 97 L Carbon Dioxide 35 H Anion Gap 14 BUN 29 H Creatinine 1.7 H Est GFR ( Amer) 47 Est GFR (Non-Af Amer) 39 POC Glucose (mg/dL) 264 H 191 H Random Glucose 175 H Calcium 8.6 03/17/17 10:58 Sodium Potassium Chloride Carbon Dioxide Anion Gap BUN Creatinine Est GFR ( Amer) Est GFR (Non-Af Amer) POC Glucose (mg/dL) 276 H Random Glucose Calcium Assessment & Plan (1) Debility Status: Acute (2) BMI greater than 40 Status: Chronic (3) CHF (congestive heart failure) Status: Chronic (4) Diabetes 1.5, 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
--- NOTE | 2017-03-17 16:35 | CP.PCM.CON ---
History of Present Illness - History of Present Illness History of Present Illness: 86 y/o [place] male h/o CAd S/P CABG 2009 followed by [place] [facility] [place] most recent one was <2 years ago H/O Moderate H/o COPD on home O2 h/o HTN, DM was recently admitted for Exacerbation of CHF which improved after IV lasix Review of Systems - Constitutional Constitutional: Weight Gain - EENT Eyes: absent: As Per HPI, Blind Spots, Blurred Vision, Change in Vision, Decreased Night Vision, Diplopia, Discharge, Dry Eye, Exophthalmos, Floaters, Irritation, Itchy Eyes, Loss of Peripheral Vision, Pain, Photophobia, Requires Corrective Lenses, Sees Flashes, Spots in Vision, Tunnel Vision, Other Visual Disturbances, Loss of Vision, Other Ears: absent: As Per HPI, Decreased Hearing, Ear Discharge, Ear Pain, Tinnitus, Abnormal Hearing, Disequilibrium, Dizziness, Other Nose/Mouth/Throat: absent: As Per HPI, Epistaxis, Nasal Congestion, Nasal Discharge, Nasal Obstruction, Nasal Trauma, Nose Pain, Post Nasal Drip, Sinus Pain, Sinus Pressure, Bleeding Gums, Change in Voice, Dental Pain, Dry Mouth, Dysphagia, Halitosis, Hoarsness, Lip Swelling, Mouth Lesions, Mouth Pain, Odynophagia, Sore Throat, Throat Swelling, Tongue Swelling, Facial Pain, Neck Pain, Neck Mass, Other - Cardiovascular Cardiovascular: Paroxysmal Nocturnal Dyspnea, Pedal Edema - Respiratory Respiratory: Cough Past Patient History - Past Medical History & Family History Past Medical History?: Yes - Past Social History Smoking Status: Former Smoker - CARDIAC Hx Cardiac Disorders: Yes (CABG, PCI X3) Hx Heart Attack: Yes Hx Hypertension: Yes - PULMONARY Hx Respiratory Disorders: Yes Hx Chronic Obstructive Pulmonary Disease (COPD): Yes - NEUROLOGICAL Hx Neurological Disorder: No - RENAL Hx Chronic Kidney Disease: No - ENDOCRINE/METABOLIC Hx Endocrine Disorders: Yes Hx Diabetes Mellitus Type 2: Yes - HEMATOLOGICAL/ONCOLOGICAL Hx Blood Disorders: No Hx AIDS: No Hx Human Immunodeficiency Virus (HIV): No - INTEGUMENTARY Hx Dermatological Problems: No - MUSCULOSKELETAL/RHEUMATOLOGICAL Hx Musculoskeletal Disorders: Yes Hx Falls: Yes Other/Comment: neuropathy - GASTROINTESTINAL Hx Gastrointestinal Disorders: No - GENITOURINARY/GYNECOLOGICAL Hx Genitourinary Disorders: No - PSYCHIATRIC Hx Psychophysiologic Disorder: No Hx Substance Use: No - SURGICAL HISTORY Hx Surgeries: Yes Hx Coronary Artery Bypass Graft: Yes (2009) Hx Coronary Stent: Yes (x3) - ANESTHESIA Hx Anesthesia: Yes Hx Anesthesia Reactions: No Meds Allergies/Adverse Reactions: Allergies Allergy/AdvReac Type Severity Reaction Status Date / Time No Known Allergies Allergy Verified 03/12/17 09:36 - Medications Medications: Current Medications Acetaminophen (Tylenol 325mg Tab) 650 mg PO Q4 PRN PRN Reason: Pain, Mild (1-3) Aspirin (Aspirin) 325 mg PO DAILY [facility] Last Admin: 03/17/17 09:00 Dose: 325 mg Atorvastatin Calcium (Lipitor) 40 mg PO HS [facility] Clopidogrel Bisulfate (Plavix) 75 mg PO DAILY [facility] Last Admin: 03/17/17 08:59 Dose: 75 mg Docusate Sodium (Colace) 100 mg PO BID [facility] Furosemide (Lasix) 40 mg PO DAILY [facility] Last Admin: 03/17/17 08:59 Dose: 40 mg Gabapentin (Neurontin) 300 mg PO BID [facility] Last Admin: 03/17/17 08:59 Dose: 300 mg Insulin Detemir (Levemir) 26 units SC [facility] Last Admin: 03/16/17 23:01 Dose: 26 u Insulin Human Regular (Humulin R) 0 units SC ACCU-CHECK [facility] PRN Reason: Protocol Last Admin: 03/17/17 12:51 Dose: 3 u Metoprolol Tartrate (Lopressor) 12.5 mg PO Q12 [facility] Last Admin: 03/17/17 08:59 Dose: 12.5 mg Tamsulosin HCl (Flomax) 0.4 mg PO DAILY [facility] Last Admin: 03/17/17 09:00 Dose: 0.4 mg Physical Exam - Constitutional Appears: Well - Head Exam Head Exam: NORMAL INSPECTION - Eye Exam Eye Exam: Normal appearance - Neck Exam Neck exam: Positive for: Normal Inspection - Respiratory Exam Respiratory Exam: Rhonchi - Cardiovascular Exam Cardiovascular Exam: REGULAR RHYTHM - Extremities Exam Extremities exam: Positive for: pedal edema Results - Vital Signs Recent Vital Signs: Last Vital Signs Temp 97.5 F L 03/17/17 16:05 Pulse 73 03/17/17 16:05 Resp 20 03/17/17 16:05 BP 129/75 03/17/17 16:05 Pulse Ox 95 03/17/17 16:05 - Labs Result Diagrams: 03/17/17 06:05 Labs: Laboratory Results - last 24 hr 03/16/17 03/17/17 03/17/17 21:37 06:00 06:05 Sodium 142 Potassium 4.0 Chloride 97 L Carbon Dioxide 35 H Anion Gap 14 BUN 29 H Creatinine 1.7 H Est GFR ( Amer) 47 Est GFR (Non-Af Amer) 39 POC Glucose (mg/dL) 264 H 191 H Random Glucose 175 H Calcium 8.6 03/17/17 03/17/17 10:58 16:17 Sodium Potassium Chloride Carbon Dioxide Anion Gap BUN Creatinine Est GFR ( Amer) Est GFR (Non-Af Amer) POC Glucose (mg/dL) 276 H 275 H Random Glucose Calcium Assessment & Plan - Assessment and Plan (Free Text) Assessment: CHf, acute diastolic, improved CAD S/P CABG and PCI Moderate HTN DM CKD COPD Plan: Cont. Acetaminophen (Tylenol 325mg Tab) 650 mg PO Q4 PRN PRN Reason: Pain, Mild (1-3) Aspirin (Aspirin) 325 mg PO DAILY [facility] Last Admin: 03/17/17 09:00 Dose: 325 mg Atorvastatin Calcium (Lipitor) 40 mg PO HS [facility] Clopidogrel Bisulfate (Plavix) 75 mg PO DAILY [facility] Last Admin: 03/17/17 08:59 Dose: 75 mg Docusate Sodium (Colace) 100 mg PO BID [facility] Furosemide (Lasix) 40 mg PO DAILY [facility] Last Admin: 03/17/17 08:59 Dose: 40 mg Gabapentin (Neurontin) 300 mg PO BID [facility] Last Admin: 03/17/17 08:59 Dose: 300 mg Insulin Detemir (Levemir) 26 units SC [facility] Last Admin: 03/16/17 23:01 Dose: 26 u Insulin Human Regular (Humulin R) 0 units SC ACCU-CHECK [facility] PRN Reason: Protocol Last Admin: 03/17/17 12:51 Dose: 3 u Metoprolol Tartrate (Lopressor) 12.5 mg PO Q12 [facility] Last Admin: 03/17/17 08:59 Dose: 12.5 mg Tamsulosin HCl (Flomax) 0.4 mg PO DAILY [facility] Last Admin: 03/17/17 09:00 Dose: 0.4 mg needs no intervention at this time
[2017-03-17] MEDS ORDERED: INSULIN GLARGINE HUM REC ANLOG 26 UNIT SC SCH (22:00)
[2017-03-17] MEDS: Insulin Detemir 100 Units/ml Inj SC SCH (22:05)
[2017-03-18] MEDS: Insulin Regular 100 units/ml SC SCH ×4 (07:06→22:53)
--- NOTE | 2017-03-18 08:13 | CP.PCM.CON ---
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 PT IS WELL KNOWN TO ME FROM OFFICE VISITS PT IS BEING SEEN IN MY OFFICE Q 3 MOTH FOR RENAL F/U OVER THE LAST 2-3 YEARS RENAL FUNCTION HAS BEEN STABLE .. RENAL FUNCTION IS ALSO STABLE ON THIS ADMITION PT IS CURRENTLY IN SUB ACUT UNIT AFTER AN ADDMITIN FOR CHF EXACERBATION PT IS VERY NICE GEOFF BUT HE IS GENERALY NON COMLIANT WITH DIET History of Present Illness: Patient 86 y/o gentleman presented in ER via EMS with the CC of SOB. He c/o gradual onset of dyspnea with orthopnea and paroxysmal nocturnal dyspnea. Dyspnea at rest and severe leg edema. weight gain . The present dyspnea is worse than previous episodes. He c/o CP, cough, and generalized weakness. He has severe hx of CAD with S/P GABG, HTN, uncontrolled diabetes. He responded for now in TCU. Past Patient History - Past Medical History & Family History Past Medical History?: Yes - Past Social History Smoking Status: Former Smoker - CARDIAC Hx Cardiac Disorders: Yes (CABG, PCI X3) Hx Heart Attack: Yes Hx Hypertension: Yes - PULMONARY Hx Respiratory Disorders: Yes Hx Chronic Obstructive Pulmonary Disease (COPD): Yes - NEUROLOGICAL Hx Neurological Disorder: No - RENAL Hx Chronic Kidney Disease: No - ENDOCRINE/METABOLIC Hx Endocrine Disorders: Yes Hx Diabetes Mellitus Type 2: Yes - HEMATOLOGICAL/ONCOLOGICAL Hx Blood Disorders: No Hx AIDS: No Hx Human Immunodeficiency Virus (HIV): No - INTEGUMENTARY Hx Dermatological Problems: No - MUSCULOSKELETAL/RHEUMATOLOGICAL Hx Musculoskeletal Disorders: Yes Hx Falls: Yes Other/Comment: neuropathy - GASTROINTESTINAL Hx Gastrointestinal Disorders: No - GENITOURINARY/GYNECOLOGICAL Hx Genitourinary Disorders: No - PSYCHIATRIC Hx Psychophysiologic Disorder: No Hx Substance Use: No - SURGICAL HISTORY Hx Surgeries: Yes Hx Coronary Artery Bypass Graft: Yes (2008) Hx Coronary Stent: Yes (x3) - ANESTHESIA Hx Anesthesia: Yes Hx Anesthesia Reactions: No Meds Allergies/Adverse Reactions: Allergies Allergy/AdvReac Type Severity Reaction Status Date / Time No Known Allergies Allergy Verified 03/12/17 09:36 - Medications Medications: Current Medications Acetaminophen (Tylenol 325mg Tab) 650 mg PO Q4 PRN PRN Reason: Pain, Mild (1-3) Aspirin (Aspirin) 325 mg PO DAILY [facility] Last Admin: 03/17/17 09:00 Dose: 325 mg Atorvastatin Calcium (Lipitor) 40 mg PO HS [facility] Last Admin: 03/17/17 22:09 Dose: 40 mg Clopidogrel Bisulfate (Plavix) 75 mg PO DAILY [facility] Last Admin: 03/17/17 08:59 Dose: 75 mg Docusate Sodium (Colace) 100 mg PO BID [facility] Last Admin: 03/17/17 17:23 Dose: 100 mg Furosemide (Lasix) 40 mg PO DAILY [facility] Last Admin: 03/17/17 08:59 Dose: 40 mg Gabapentin (Neurontin) 300 mg PO BID [facility] Last Admin: 03/17/17 17:30 Dose: 300 mg Insulin Detemir (Levemir) 26 units SC HS [facility] Last Admin: 03/17/17 22:05 Dose: 26 u Insulin Human Regular (Humulin R) 0 units SC ACCU-CHECK [facility] PRN Reason: Protocol Last Admin: 03/18/17 07:06 Dose: 3 u Metoprolol Tartrate (Lopressor) 12.5 mg PO Q12 [facility] Last Admin: 03/17/17 22:12 Dose: 12.5 mg Tamsulosin HCl (Flomax) 0.4 mg PO DAILY [facility] Last Admin: 03/17/17 09:00 Dose: 0.4 mg Results - Vital Signs Recent Vital Signs: Last Vital Signs Temp 97.9 F 03/18/17 07:57 Pulse 92 H 03/18/17 07:57 Resp 20 03/18/17 07:57 BP 118/75 03/18/17 07:57 Pulse Ox 92 L 03/18/17 07:57 - Labs Result Diagrams: 03/17/17 06:05 Labs: Laboratory Results - last 24 hr 03/17/17 03/17/17 03/17/17 10:58 16:17 20:11 POC Glucose (mg/dL) 276 H 275 H 243 H 03/18/17 05:44 POC Glucose (mg/dL) 269 H Assessment & Plan - Assessment and Plan (Free Text) Assessment: CKD STAGE 3 WTH eGFR AT 39 ML / M RENAL METABOLIC BONE DISEASE H/O BPH CHF .. 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 2G NA .. 2 GM K .. 50 GM PROTIEN .. 1800 CONG ADA .. 1000 CC FR DIETARY CONSULT AND COUNCELING FOR ABOVE DIET ADD ARBS .. SLOWLY AND GRADUALLY FOR RENAL PROTECTION EFFECT AND FOR CHF MANAGEMENT ADD VIT D C/O DIURETICS WILL F/U CLOSELY - Date & Time Date: 03/17/17 Time: 16:00
[2017-03-18] MEDS: Multivitamin Vitamin B Complex (Nephro-Vite) Tab PO SCH (14:09)
--- NOTE | 2017-03-18 15:57 | CP.PCM.PN ---
Subjective - Date & Time of Evaluation Date of Evaluation: 03/18/17 Time of Evaluation: 15:55 - Subjective Subjective: c/o SOB upon exertion No dizziness Objective - Vital Signs/Intake and Output Vital Signs (last 24 hours): Temp Pulse Resp BP Pulse Ox 97.9 F 78 20 120/77 95 03/18/17 07:57 03/18/17 09:37 03/18/17 07:57 03/18/17 09:37 03/18/17 09:37 - Medications Medications: Current Medications Acetaminophen (Tylenol 325mg Tab) 650 mg PO Q4 PRN PRN Reason: Pain, Mild (1-3) Aspirin (Aspirin) 325 mg PO DAILY [facility] Last Admin: 03/18/17 08:31 Dose: 325 mg Atorvastatin Calcium (Lipitor) 40 mg PO HS [facility] Last Admin: 03/17/17 22:09 Dose: 40 mg Cholecalciferol (Vitamin D) 2,000 iu PO DAILY [facility] Clopidogrel Bisulfate (Plavix) 75 mg PO DAILY [facility] Last Admin: 03/18/17 08:27 Dose: 75 mg Docusate Sodium (Colace) 100 mg PO BID [facility] Last Admin: 03/18/17 08:27 Dose: 100 mg Doxercalciferol (Hectorol) 0.5 mcg PO DAILY [facility] Last Admin: 03/18/17 14:09 Dose: 0.5 mcg Furosemide (Lasix) 40 mg PO BID [facility] Gabapentin (Neurontin) 300 mg PO BID [facility] Last Admin: 03/18/17 08:27 Dose: 300 mg Insulin Detemir (Levemir) 26 units SC HS [facility] Last Admin: 03/17/17 22:05 Dose: 26 u Insulin Human Regular (Humulin R) 0 units SC ACCU-CHECK [facility] PRN Reason: Protocol Last Admin: 03/18/17 07:06 Dose: 3 u Losartan Potassium (Cozaar) 25 mg PO DAILY [facility] Last Admin: 03/18/17 14:08 Dose: 25 mg Metoprolol Tartrate (Lopressor) 12.5 mg PO Q12 [facility] Last Admin: 03/18/17 08:26 Dose: 12.5 mg Tamsulosin HCl (Flomax) 0.4 mg PO DAILY [facility] Last Admin: 03/18/17 08:28 Dose: 0.4 mg Vitamin B Complex/Vit C/Folic Acid (Nephro-Gerald) 1 tab PO DAILY [facility] Last Admin: 03/18/17 14:09 Dose: 1 tab - Labs Labs: 03/17/17 06:05 - Constitutional Appears: Well - Head Exam Head Exam: ATRAUMATIC - Eye Exam Eye Exam: Normal appearance - Neck Exam Neck Exam: Normal Inspection - Respiratory Exam Respiratory Exam: Rhonchi - Cardiovascular Exam Cardiovascular Exam: REGULAR RHYTHM - Extremities Exam Extremities Exam: Pedal Edema Assessment and Plan - Assessment and Plan (Free Text) Assessment: CHF CAD S/P CABG CKD COPD Plan: Cont. Acetaminophen (Tylenol 325mg Tab) 650 mg PO Q4 PRN PRN Reason: Pain, Mild (1-3) Aspirin (Aspirin) 325 mg PO DAILY [facility] Last Admin: 03/18/17 08:31 Dose: 325 mg Atorvastatin Calcium (Lipitor) 40 mg PO HS [facility] Last Admin: 03/17/17 22:09 Dose: 40 mg Cholecalciferol (Vitamin D) 2,000 iu PO DAILY [facility] Clopidogrel Bisulfate (Plavix) 75 mg PO DAILY [facility] Last Admin: 03/18/17 08:27 Dose: 75 mg Docusate Sodium (Colace) 100 mg PO BID [facility] Last Admin: 03/18/17 08:27 Dose: 100 mg Doxercalciferol (Hectorol) 0.5 mcg PO DAILY [facility] Last Admin: 03/18/17 14:09 Dose: 0.5 mcg Gabapentin (Neurontin) 300 mg PO BID [facility] Last Admin: 03/18/17 08:27 Dose: 300 mg Insulin Detemir (Levemir) 26 units SC [facility] Last Admin: 03/17/17 22:05 Dose: 26 u Insulin Human Regular (Humulin R) 0 units SC ACCU-CHECK [facility] PRN Reason: Protocol Last Admin: 03/18/17 07:06 Dose: 3 u Losartan Potassium (Cozaar) 25 mg PO DAILY [facility] Last Admin: 03/18/17 14:08 Dose: 25 mg Metoprolol Tartrate (Lopressor) 12.5 mg PO Q12 [facility] Last Admin: 03/18/17 08:26 Dose: 12.5 mg Tamsulosin HCl (Flomax) 0.4 mg PO DAILY [facility] Last Admin: 03/18/17 08:28 Dose: 0.4 mg Vitamin B Complex/Vit C/Folic Acid (Nephro-Gerald) 1 tab PO DAILY [facility] Last Admin: 03/18/17 14:09 Dose: 1 tab Increase Furosemide (Lasix) 40 mg PO BID [facility]
[2017-03-18] MEDS: Insulin Detemir 100 Units/ml Inj SC SCH (21:34)
[2017-03-19] MEDS: Insulin Regular 100 units/ml SC SCH ×4 (06:52→22:57)
[2017-03-19] MEDS: Multivitamin Vitamin B Complex (Nephro-Vite) Tab PO SCH (08:57)
[2017-03-19] MEDS ORDERED: Insulin Detemir 100 Units/ml Inj SC SCH (09:16)
--- NOTE | 2017-03-19 09:53 | CP.PCM.PN ---
Subjective - Date & Time of Evaluation Date of Evaluation: 03/19/17 Time of Evaluation: 09:53 - Subjective Subjective: Still SOB on exertion Objective - Vital Signs/Intake and Output Vital Signs (last 24 hours): Temp Pulse Resp BP Pulse Ox 97.2 F L 72 20 124/77 76 L 03/19/17 07:44 03/19/17 08:57 03/19/17 07:44 03/19/17 08:57 03/19/17 07:44 - Medications Medications: Current Medications Acetaminophen (Tylenol 325mg Tab) 650 mg PO Q4 PRN PRN Reason: Pain, Mild (1-3) Aspirin (Aspirin) 325 mg PO DAILY [facility] Last Admin: 03/19/17 08:55 Dose: 325 mg Atorvastatin Calcium (Lipitor) 40 mg PO HS [facility] Last Admin: 03/18/17 21:37 Dose: 40 mg Cholecalciferol (Vitamin D) 2,000 iu PO DAILY [facility] Last Admin: 03/19/17 08:57 Dose: 2,000 iu Clopidogrel Bisulfate (Plavix) 75 mg PO DAILY [facility] Last Admin: 03/19/17 08:57 Dose: 75 mg Docusate Sodium (Colace) 100 mg PO BID [facility] Last Admin: 03/19/17 08:56 Dose: 100 mg Doxercalciferol (Hectorol) 0.5 mcg PO DAILY [facility] Last Admin: 03/19/17 08:56 Dose: 0.5 mcg Furosemide (Lasix) 40 mg PO BID [facility] Last Admin: 03/19/17 08:57 Dose: 40 mg Gabapentin (Neurontin) 300 mg PO BID [facility] Last Admin: 03/19/17 08:57 Dose: 300 mg Insulin Detemir (Levemir) [address] [facility] Insulin Human Regular (Humulin R) 0 units SC ACCU-CHECK [facility] PRN Reason: Protocol Last Admin: 03/19/17 06:52 Dose: 3 u Losartan Potassium (Cozaar) 25 mg PO DAILY [facility] Last Admin: 03/19/17 08:56 Dose: 25 mg Metoprolol Tartrate (Lopressor) 12.5 mg PO Q12 [facility] Last Admin: 03/19/17 08:57 Dose: 12.5 mg Tamsulosin HCl (Flomax) 0.4 mg PO DAILY [facility] Last Admin: 03/19/17 08:56 Dose: 0.4 mg Vitamin B Complex/Vit C/Folic Acid (Nephro-Gerald) 1 tab PO DAILY [facility] Last Admin: 03/19/17 08:57 Dose: 1 tab - Labs Labs: 03/17/17 06:05 - Constitutional Appears: Chronically Ill - Head Exam Head Exam: ATRAUMATIC, NORMAL INSPECTION, NORMOCEPHALIC - Eye Exam Eye Exam: Normal appearance Pupil Exam: PERRL - ENT Exam ENT Exam: Mucous Membranes Moist - Neck Exam Neck Exam: Full ROM - Respiratory Exam Respiratory Exam: Decreased Breath Sounds - Cardiovascular Exam Cardiovascular Exam: REGULAR RHYTHM, +S1, +S2 - GI/Abdominal Exam GI & Abdominal Exam: Distended, Soft - Extremities Exam Extremities Exam: Pedal Edema - Neurological Exam Neurological Exam: Alert, Awake, CN II-XII Intact, Oriented x3 Assessment and Plan (1) Debility Status: Acute (2) BMI greater than 40 Status: Chronic (3) CHF (congestive heart failure) Status: Chronic (4) Diabetes 1.5, 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
[2017-03-19 11:14] LABS: CALCIUM 8.8 mg/dL (8.4-10.2)
--- NOTE | 2017-03-19 15:57 | CP.PCM.PN ---
Subjective - Date & Time of Evaluation Date of Evaluation: 03/19/17 Time of Evaluation: 15:54 - Subjective Subjective: SOB requiring nasal O2 Objective - Vital Signs/Intake and Output Vital Signs (last 24 hours): Temp Pulse Resp BP Pulse Ox 97.2 F L 72 20 124/77 94 L 03/19/17 07:44 03/19/17 08:57 03/19/17 07:44 03/19/17 08:57 03/19/17 10:00 - Medications Medications: Current Medications Acetaminophen (Tylenol 325mg Tab) 650 mg PO Q4 PRN PRN Reason: Pain, Mild (1-3) Aspirin (Aspirin) 325 mg PO DAILY [facility] Last Admin: 03/19/17 08:55 Dose: 325 mg Atorvastatin Calcium (Lipitor) 40 mg PO HS [facility] Last Admin: 03/18/17 21:37 Dose: 40 mg Cholecalciferol (Vitamin D) 2,000 iu PO DAILY [facility] Last Admin: 03/19/17 08:57 Dose: 2,000 iu Clopidogrel Bisulfate (Plavix) 75 mg PO DAILY [facility] Last Admin: 03/19/17 08:57 Dose: 75 mg Docusate Sodium (Colace) 100 mg PO BID [facility] Last Admin: 03/19/17 08:56 Dose: 100 mg Doxercalciferol (Hectorol) 0.5 mcg PO DAILY [facility] Last Admin: 03/19/17 08:56 Dose: 0.5 mcg Furosemide (Lasix) 40 mg IV BID [facility] Gabapentin (Neurontin) 300 mg PO BID [facility] Last Admin: 03/19/17 08:57 Dose: 300 mg Insulin Detemir (Levemir) 28 units SC [facility] Insulin Human Regular (Humulin R) 0 units SC ACCU-CHECK [facility] PRN Reason: Protocol Last Admin: 03/19/17 13:35 Dose: 5 u Losartan Potassium (Cozaar) 25 mg PO DAILY [facility] Last Admin: 03/19/17 08:56 Dose: 25 mg Metoprolol Tartrate (Lopressor) 12.5 mg PO Q12 [facility] Last Admin: 03/19/17 08:57 Dose: 12.5 mg Tamsulosin HCl (Flomax) 0.4 mg PO DAILY [facility] Last Admin: 03/19/17 08:56 Dose: 0.4 mg Vitamin B Complex/Vit C/Folic Acid (Nephro-Gerald) 1 tab PO DAILY [facility] Last Admin: 03/19/17 08:57 Dose: 1 tab - Labs Labs: 03/19/17 10:20 - Head Exam Head Exam: NORMOCEPHALIC - Eye Exam Eye Exam: Normal appearance - Neck Exam Neck Exam: Normal Inspection - Respiratory Exam Respiratory Exam: Rhonchi - Cardiovascular Exam Cardiovascular Exam: REGULAR RHYTHM - Extremities Exam Extremities Exam: Normal Inspection Assessment and Plan - Assessment and Plan (Free Text) Assessment: Distolic Failure COPD CAD S/P CABG and PCI CKD Plan: Cont. Acetaminophen (Tylenol 325mg Tab) 650 mg PO Q4 PRN PRN Reason: Pain, Mild (1-3) Aspirin (Aspirin) 325 mg PO DAILY [facility] Last Admin: 03/19/17 08:55 Dose: 325 mg Atorvastatin Calcium (Lipitor) 40 mg PO HS [facility] Last Admin: 03/18/17 21:37 Dose: 40 mg Cholecalciferol (Vitamin D) 2,000 iu PO DAILY [facility] Last Admin: 03/19/17 08:57 Dose: 2,000 iu Clopidogrel Bisulfate (Plavix) 75 mg PO DAILY [facility] Last Admin: 03/19/17 08:57 Dose: 75 mg Docusate Sodium (Colace) 100 mg PO BID [facility] Last Admin: 03/19/17 08:56 Dose: 100 mg Doxercalciferol (Hectorol) 0.5 mcg PO DAILY [facility] Last Admin: 03/19/17 08:56 Dose: 0.5 mcg Gabapentin (Neurontin) 300 mg PO BID [facility] Last Admin: 03/19/17 08:57 Dose: 300 mg Insulin Detemir (Levemir) 28 units SC [facility] Insulin Human Regular (Humulin R) 0 units SC ACCU-CHECK [facility] PRN Reason: Protocol Last Admin: 03/19/17 13:35 Dose: 5 u Losartan Potassium (Cozaar) 25 mg PO DAILY [facility] Last Admin: 03/19/17 08:56 Dose: 25 mg Metoprolol Tartrate (Lopressor) 12.5 mg PO Q12 [facility] Last Admin: 03/19/17 08:57 Dose: 12.5 mg Tamsulosin HCl (Flomax) 0.4 mg PO DAILY [facility] Last Admin: 03/19/17 08:56 Dose: 0.4 mg Vitamin B Complex/Vit C/Folic Acid (Nephro-Gerald) 1 tab PO DAILY [facility] Last Admin: 03/19/17 08:57 Dose: 1 tab Start Furosemide (Lasix) 40 mg IV BID Discussed with PMD
--- NOTE | 2017-03-19 23:29 | CP.PCM.PN ---
Subjective - Date & Time of Evaluation Date of Evaluation: 03/19/17 Time of Evaluation: 13:00 - Subjective Subjective: SEEN ON RENAL F/U SITTING DOWN OOB .. ON O2 SUPPLEMENT C/O SOB OFF O2 MICHAEL FUNCTION STABLE WHILE ON 25 MG LOSARTAN eGFR 39 --> 41 ... K OK ABOVE NOTES READ Objective - Vital Signs/Intake and Output Vital Signs (last 24 hours): Temp Pulse Resp BP Pulse Ox 96.8 F L 66 20 121/63 95 03/19/17 20:20 03/19/17 21:23 03/19/17 20:20 03/19/17 20:20 03/19/17 20:20 - Medications Medications: Current Medications Acetaminophen (Tylenol 325mg Tab) 650 mg PO Q4 PRN PRN Reason: Pain, Mild (1-3) Aspirin (Aspirin) 325 mg PO DAILY [facility] Last Admin: 03/19/17 08:55 Dose: 325 mg Atorvastatin Calcium (Lipitor) 40 mg PO HS [facility] 234 [facility]S [facility] Last Admin: 03/19/17 21:28 Dose: 40 mg Cholecalciferol (Vitamin D) 2,000 iu PO DAILY [facility] 234 [facility]S [facility] Last Admin: 03/19/17 08:57 Dose: 2,000 iu Clopidogrel Bisulfate (Plavix) 75 mg PO DAILY [facility] 234 [facility]S [facility] Last Admin: 03/19/17 08:57 Dose: 75 mg Docusate Sodium (Colace) 100 mg PO BID [facility] 234 [facility]S [facility] Last Admin: 03/19/17 17:11 Dose: 100 mg Doxercalciferol (Hectorol) 0.5 mcg PO DAILY [facility] 234 [facility]S [facility] Last Admin: 03/19/17 08:56 Dose: 0.5 mcg Furosemide (Lasix) 40 mg IV BID [facility]CLUDE 234 BEDS [facility] Last Admin: 03/19/17 17:13 Dose: 40 mg Gabapentin (Neurontin) 300 mg PO BID [facility] 234 B[facility]S [facility] Last Admin: 03/19/17 17:12 Dose: 300 mg Insulin Detemir (Levemir) 28 units SC HS [facility] 234 BEDS [facility] Last Admin: 03/19/17 21:24 Dose: 28 u Insulin Human Regular (Humulin R) 0 units SC ACCU-CHECK [facility] 234 [facility]EDS [facility] PRN Reason: Protocol Last Admin: 03/19/17 22:57 Dose: Not Given Losartan Potassium (Cozaar) 25 mg PO DAILY [facility] 234 [facility]S [facility] Last Admin: 03/19/17 08:56 Dose: 25 mg Metoprolol Tartrate (Lopressor) 12.5 mg PO Q12 [facility] 234 [facility]S [facility] Last Admin: 03/19/17 21:23 Dose: 12.5 mg Tamsulosin HCl (Flomax) 0.4 mg PO DAILY [facility] 234 BEDS [facility] Last Admin: 03/19/17 08:56 Dose: 0.4 mg Vitamin B Complex/Vit C/Folic Acid (Nephro-Gerald) 1 tab PO DAILY [facility] 234 BEDS [facility] Last Admin: 03/19/17 08:57 Dose: 1 tab - Labs Labs: 03/19/17 10:20 Assessment and Plan - Assessment and Plan (Free Text) Assessment: CKD .. STABLE RENAL FUNCTION .. eGFR BETTER ON LOSARTAN ANEMIA OF CKD .. H/H STABLE COPD CHF IRDM .. ON INSULIN M . OBESITY P : INCREASE LOSARTAN TI 50 MG FOR RENAL PROTECTION WELL AFTER LOAD REDUCTION C/O LASIX 40 MG BID WAS INSTRUCTED ABOUT FLUID RESTRICTION
[2017-03-20] MEDS: Insulin Regular 100 units/ml SC SCH ×4 (07:22→22:17)
[2017-03-20] MEDS: Multivitamin Vitamin B Complex (Nephro-Vite) Tab PO SCH (09:13)
--- NOTE | 2017-03-20 16:59 | CP.PCM.PN ---
Subjective - Date & Time of Evaluation Date of Evaluation: 03/20/17 Time of Evaluation: 16:57 - Subjective Subjective: SOB improved no dizziness or C/P Objective - Vital Signs/Intake and Output Vital Signs (last 24 hours): Temp Pulse Resp BP Pulse Ox 97.8 F 72 20 102/52 L 98 03/20/17 08:03 03/20/17 09:15 03/20/17 08:03 03/20/17 16:44 03/20/17 08:03 - Medications Medications: Current Medications Acetaminophen (Tylenol 325mg Tab) 650 mg PO Q4 PRN PRN Reason: Pain, Mild (1-3) Aspirin (Aspirin) 325 mg PO DAILY [facility] Last Admin: 03/20/17 09:19 Dose: 325 mg Atorvastatin Calcium (Lipitor) 40 mg PO HS [facility] Last Admin: 03/19/17 21:28 Dose: 40 mg Cholecalciferol (Vitamin D) 2,000 iu PO DAILY [facility] Last Admin: 03/20/17 09:15 Dose: 2,000 iu Clopidogrel Bisulfate (Plavix) 75 mg PO DAILY [facility] Last Admin: 03/20/17 09:13 Dose: 75 mg Docusate Sodium (Colace) 100 mg PO BID [facility] Last Admin: 03/20/17 16:44 Dose: 100 mg Doxercalciferol (Hectorol) 0.5 mcg PO DAILY [facility] Last Admin: 03/20/17 09:14 Dose: 0.5 mcg Furosemide (Lasix) 40 mg IV BID [facility] Last Admin: 03/20/17 16:44 Dose: 40 mg Gabapentin (Neurontin) 300 mg PO BID [facility] Last Admin: 03/20/17 16:47 Dose: 300 mg Insulin Detemir (Levemir) 28 units SC [facility] Last Admin: 03/19/17 21:24 Dose: 28 u Insulin Human Regular (Humulin R) 0 units SC ACCU-CHECK [facility] PRN Reason: Protocol Last Admin: 03/20/17 16:43 Dose: 4 u Losartan Potassium (Cozaar) 25 mg PO DAILY [facility] Last Admin: 03/20/17 09:15 Dose: 25 mg Metoprolol Tartrate (Lopressor) 12.5 mg PO Q12 [facility] Last Admin: 03/20/17 09:13 Dose: 12.5 mg Tamsulosin HCl (Flomax) 0.4 mg PO DAILY [facility] Last Admin: 03/20/17 09:13 Dose: 0.4 mg Vitamin B Complex/Vit C/Folic Acid (Nephro-Gerald) 1 tab PO DAILY [facility] Last Admin: 03/20/17 09:13 Dose: 1 tab - Labs Labs: 03/19/17 10:20 - Constitutional Appears: Non-toxic - Head Exam Head Exam: NORMAL INSPECTION - Eye Exam Eye Exam: Normal appearance - Cardiovascular Exam Cardiovascular Exam: REGULAR RHYTHM - GI/Abdominal Exam GI & Abdominal Exam: Normal Bowel Sounds - Extremities Exam Extremities Exam: Pedal Edema Assessment and Plan - Assessment and Plan (Free Text) Assessment: CHF COPD CAD s/p CABG DM CKD Plan: Cont. Acetaminophen (Tylenol 325mg Tab) 650 mg PO Q4 PRN PRN Reason: Pain, Mild (1-3) Aspirin (Aspirin) 325 mg PO DAILY [facility] Last Admin: 03/20/17 09:19 Dose: 325 mg Atorvastatin Calcium (Lipitor) 40 mg PO HS [facility] Last Admin: 03/19/17 21:28 Dose: 40 mg Cholecalciferol (Vitamin D) 2,000 iu PO DAILY [facility] Last Admin: 03/20/17 09:15 Dose: 2,000 iu Clopidogrel Bisulfate (Plavix) 75 mg PO DAILY [facility] Last Admin: 03/20/17 09:13 Dose: 75 mg Docusate Sodium (Colace) 100 mg PO BID [facility] Last Admin: 03/20/17 16:44 Dose: 100 mg Doxercalciferol (Hectorol) 0.5 mcg PO DAILY [facility] Last Admin: 03/20/17 09:14 Dose: 0.5 mcg Furosemide (Lasix) 40 mg IV BID [facility] Last Admin: 03/20/17 16:44 Dose: 40 mg Gabapentin (Neurontin) 300 mg PO BID [facility] Last Admin: 03/20/17 16:47 Dose: 300 mg Insulin Detemir (Levemir) 28 units SC HS [facility] Last Admin: 03/19/17 21:24 Dose: 28 u Insulin Human Regular (Humulin R) 0 units SC ACCU-CHECK [facility] PRN Reason: Protocol Last Admin: 03/20/17 16:43 Dose: 4 u Losartan Potassium (Cozaar) 25 mg PO DAILY [facility] Last Admin: 03/20/17 09:15 Dose: 25 mg Metoprolol Tartrate (Lopressor) 12.5 mg PO Q12 [facility] Last Admin: 03/20/17 09:13 Dose: 12.5 mg Tamsulosin HCl (Flomax) 0.4 mg PO DAILY [facility] Last Admin: 03/20/17 09:13 Dose: 0.4 mg Vitamin B Complex/Vit C/Folic Acid (Nephro-Gerald) 1 tab PO DAILY [facility] Last Admin: 03/20/17 09:13 Dose: 1 tab
--- NOTE | 2017-03-20 17:16 | CP.PCM.PN ---
Subjective - Date & Time of Evaluation Date of Evaluation: 03/20/17 Time of Evaluation: 14:00 - Subjective Subjective: No new c/o Objective - Vital Signs/Intake and Output Vital Signs (last 24 hours): Temp Pulse Resp BP Pulse Ox 98.1 F 63 20 102/53 L 95 03/20/17 17:07 03/20/17 17:07 03/20/17 17:07 03/20/17 17:07 03/20/17 17:07 - Medications Medications: Current Medications Acetaminophen (Tylenol 325mg Tab) 650 mg PO Q4 PRN PRN Reason: Pain, Mild (1-3) Aspirin (Aspirin) 325 mg PO DAILY [facility] Last Admin: 03/20/17 09:19 Dose: 325 mg Atorvastatin Calcium (Lipitor) 40 mg PO HS [facility] Last Admin: 03/19/17 21:28 Dose: 40 mg Cholecalciferol (Vitamin D) 2,000 iu PO DAILY [facility] Last Admin: 03/20/17 09:15 Dose: 2,000 iu Clopidogrel Bisulfate (Plavix) 75 mg PO DAILY [facility] Last Admin: 03/20/17 09:13 Dose: 75 mg Docusate Sodium (Colace) 100 mg PO BID [facility] Last Admin: 03/20/17 16:44 Dose: 100 mg Doxercalciferol (Hectorol) 0.5 mcg PO DAILY [facility] Last Admin: 03/20/17 09:14 Dose: 0.5 mcg Furosemide (Lasix) 40 mg IV BID [facility] Last Admin: 03/20/17 16:44 Dose: 40 mg Gabapentin (Neurontin) 300 mg PO BID [facility] Last Admin: 03/20/17 16:47 Dose: 300 mg Insulin Detemir (Levemir) 15 units SC Q12 [facility] Insulin Human Regular (Humulin R) 0 units SC ACCU-CHECK [facility] PRN Reason: Protocol Losartan Potassium (Cozaar) 25 mg PO DAILY [facility] Last Admin: 03/20/17 09:15 Dose: 25 mg Metoprolol Tartrate (Lopressor) 12.5 mg PO Q12 [facility] Last Admin: 03/20/17 09:13 Dose: 12.5 mg Tamsulosin HCl (Flomax) 0.4 mg PO DAILY [facility] Last Admin: 03/20/17 09:13 Dose: 0.4 mg Vitamin B Complex/Vit C/Folic Acid (Nephro-Gerald) 1 tab PO DAILY [facility] Last Admin: 03/20/17 09:13 Dose: 1 tab - Labs Labs: 03/19/17 10:20 - Constitutional Appears: Chronically Ill - Head Exam Head Exam: ATRAUMATIC, NORMAL INSPECTION, NORMOCEPHALIC - Eye Exam Eye Exam: Normal appearance - ENT Exam ENT Exam: Mucous Membranes Moist - Neck Exam Neck Exam: Full ROM - Respiratory Exam Respiratory Exam: Decreased Breath Sounds - Cardiovascular Exam Cardiovascular Exam: REGULAR RHYTHM, +S1, +S2 - GI/Abdominal Exam GI & Abdominal Exam: Soft - Extremities Exam Extremities Exam: Pedal Edema - Neurological Exam Neurological Exam: Alert, Awake, CN II-XII Intact, Oriented x3 - Psychiatric Exam Psychiatric exam: Normal Affect Assessment and Plan (1) Debility Status: Acute (2) BMI greater than 40 Status: Chronic (3) CHF (congestive heart failure) Status: Chronic (4) Diabetes 1.5, 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
[2017-03-20 19:43] LABS: CALCIUM 8.9 mg/dL (8.4-10.2)
[2017-03-20] MEDS: Insulin Detemir 100 Units/ml Inj SC SCH (21:41)
[2017-03-21] MEDS: Insulin Regular 100 units/ml SC SCH ×4 (07:00→22:02)
[2017-03-21] MEDS: Multivitamin Vitamin B Complex (Nephro-Vite) Tab PO SCH (08:30)
[2017-03-21] MEDS: Insulin Detemir 100 Units/ml Inj SC SCH (08:36)
[2017-03-21] MEDS ORDERED: Insulin Detemir 100 Units/ml Inj SC SCH (09:57)
--- NOTE | 2017-03-21 10:32 | CP.PCM.PN ---
Subjective - Date & Time of Evaluation Date of Evaluation: 03/21/17 Time of Evaluation: 10:32 - Subjective Subjective: Improving on presence rx. Objective - Vital Signs/Intake and Output Vital Signs (last 24 hours): Temp Pulse Resp BP Pulse Ox 98.0 F 79 18 107/68 99 03/21/17 07:52 03/21/17 08:31 03/21/17 07:52 03/21/17 08:37 03/21/17 07:52 - Medications Medications: Current Medications Acetaminophen (Tylenol 325mg Tab) 650 mg PO Q4 PRN PRN Reason: Pain, Mild (1-3) Aspirin (Aspirin) 325 mg PO DAILY [facility] Last Admin: 03/21/17 08:44 Dose: 325 mg Atorvastatin Calcium (Lipitor) 40 mg PO HS [facility] Last Admin: 03/20/17 21:40 Dose: 40 mg Cholecalciferol (Vitamin D) 2,000 iu PO DAILY [facility] Last Admin: 03/21/17 08:32 Dose: 2,000 iu Clopidogrel Bisulfate (Plavix) 75 mg PO DAILY [facility] Last Admin: 03/21/17 08:31 Dose: 75 mg Docusate Sodium (Colace) 100 mg PO BID [facility] Last Admin: 03/21/17 08:32 Dose: 100 mg Doxercalciferol (Hectorol) 0.5 mcg PO DAILY [facility] Last Admin: 03/21/17 08:32 Dose: 0.5 mcg Furosemide (Lasix) 40 mg IV BID [facility] Last Admin: 03/21/17 08:37 Dose: 40 mg Gabapentin (Neurontin) 300 mg PO BID [facility] Last Admin: 03/21/17 08:32 Dose: 300 mg Insulin Detemir (Levemir) 18 units SC Q12 [facility] Insulin Human Regular (Humulin R) 0 units SC ACCU-CHECK [facility] PRN Reason: Protocol Last Admin: 03/21/17 07:00 Dose: 4 u Losartan Potassium (Cozaar) 25 mg PO DAILY [facility] Last Admin: 03/21/17 08:31 Dose: 25 mg Metoprolol Tartrate (Lopressor) 12.5 mg PO Q12 [facility] Last Admin: 03/21/17 08:31 Dose: 12.5 mg Tamsulosin HCl (Flomax) 0.4 mg PO DAILY [facility] Last Admin: 03/21/17 08:32 Dose: 0.4 mg Vitamin B Complex/Vit C/Folic Acid (Nephro-Gerald) 1 tab PO DAILY [facility] Last Admin: 03/21/17 08:30 Dose: 1 tab - Labs Labs: 03/20/17 18:55 - Constitutional Appears: Chronically Ill - Head Exam Head Exam: ATRAUMATIC, NORMAL INSPECTION, NORMOCEPHALIC - Eye Exam Eye Exam: Normal appearance - ENT Exam ENT Exam: Mucous Membranes Moist - Neck Exam Neck Exam: Full ROM - Respiratory Exam Respiratory Exam: Decreased Breath Sounds - Cardiovascular Exam Cardiovascular Exam: REGULAR RHYTHM, +S1, +S2 - GI/Abdominal Exam GI & Abdominal Exam: Normal Bowel Sounds - Extremities Exam Extremities Exam: Pedal Edema - Neurological Exam Neurological Exam: Alert, Awake, CN II-XII Intact, Oriented x3 - Psychiatric Exam Psychiatric exam: Normal Affect Assessment and Plan (1) Debility Status: Acute (2) BMI greater than 40 Status: Chronic (3) CHF (congestive heart failure) Status: Chronic (4) Diabetes 1.5, managed as type 2 Status: Chronic (5) Oxygen desaturation during sleep Status: Chronic (6) Aortic stenosis Status: Chronic (7) CKD stage G3b/A1, 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
--- NOTE | 2017-03-21 12:52 | CP.PCM.PN ---
Subjective - Date & Time of Evaluation Date of Evaluation: 03/21/17 Time of Evaluation: 12:50 - Subjective Subjective: Mild SOB No cough , c/p or dizziness Objective - Vital Signs/Intake and Output Vital Signs (last 24 hours): Temp Pulse Resp BP Pulse Ox 98.0 F 79 18 107/68 99 03/21/17 07:52 03/21/17 08:31 03/21/17 07:52 03/21/17 08:37 03/21/17 07:52 - Medications Medications: Current Medications Acetaminophen (Tylenol 325mg Tab) 650 mg PO Q4 PRN PRN Reason: Pain, Mild (1-3) Aspirin (Aspirin) 325 mg PO DAILY [facility] Last Admin: 03/21/17 08:44 Dose: 325 mg Atorvastatin Calcium (Lipitor) 40 mg PO HS [facility] Last Admin: 03/20/17 21:40 Dose: 40 mg Cholecalciferol (Vitamin D) 2,000 iu PO DAILY [facility] Last Admin: 03/21/17 08:32 Dose: 2,000 iu Clopidogrel Bisulfate (Plavix) 75 mg PO DAILY [facility] Last Admin: 03/21/17 08:31 Dose: 75 mg Docusate Sodium (Colace) 100 mg PO BID [facility] Last Admin: 03/21/17 08:32 Dose: 100 mg Doxercalciferol (Hectorol) 0.5 mcg PO DAILY [facility] Last Admin: 03/21/17 08:32 Dose: 0.5 mcg Furosemide (Lasix) 40 mg IV BID [facility] Last Admin: 03/21/17 08:37 Dose: 40 mg Gabapentin (Neurontin) 300 mg PO BID [facility] Last Admin: 03/21/17 08:32 Dose: 300 mg Insulin Detemir (Levemir) 18 units SC Q12 [facility] Insulin Human Regular (Humulin R) 0 units SC ACCU-CHECK [facility] PRN Reason: Protocol Last Admin: 03/21/17 12:17 Dose: 10 u Losartan Potassium (Cozaar) 25 mg PO DAILY [facility] Last Admin: 03/21/17 08:31 Dose: 25 mg Metoprolol Tartrate (Lopressor) 12.5 mg PO Q12 [facility] Last Admin: 03/21/17 08:31 Dose: 12.5 mg Tamsulosin HCl (Flomax) 0.4 mg PO DAILY [facility] Last Admin: 03/21/17 08:32 Dose: 0.4 mg Vitamin B Complex/Vit C/Folic Acid (Nephro-Gerald) 1 tab PO DAILY [facility] Last Admin: 03/21/17 08:30 Dose: 1 tab - Labs Labs: 03/20/17 18:55 - Head Exam Head Exam: NORMOCEPHALIC - Eye Exam Eye Exam: Normal appearance - Neck Exam Neck Exam: Normal Inspection - Respiratory Exam Respiratory Exam: Rhonchi - Cardiovascular Exam Cardiovascular Exam: REGULAR RHYTHM - Extremities Exam Extremities Exam: Pedal Edema Assessment and Plan - Assessment and Plan (Free Text) Assessment: Diastolic Heart Failure CAD S/P CABG & PCI DM COPD CKD Plan: Cont. Acetaminophen (Tylenol 325mg Tab) 650 mg PO Q4 PRN PRN Reason: Pain, Mild (1-3) Aspirin (Aspirin) 325 mg PO DAILY [facility] Last Admin: 03/21/17 08:44 Dose: 325 mg Atorvastatin Calcium (Lipitor) 40 mg PO HS [facility] Last Admin: 03/20/17 21:40 Dose: 40 mg Cholecalciferol (Vitamin D) 2,000 iu PO DAILY [facility] Last Admin: 03/21/17 08:32 Dose: 2,000 iu Clopidogrel Bisulfate (Plavix) 75 mg PO DAILY [facility] Last Admin: 03/21/17 08:31 Dose: 75 mg Docusate Sodium (Colace) 100 mg PO BID [facility] Last Admin: 03/21/17 08:32 Dose: 100 mg Doxercalciferol (Hectorol) 0.5 mcg PO DAILY [facility] Last Admin: 03/21/17 08:32 Dose: 0.5 mcg Furosemide (Lasix) 40 mg IV BID [facility] Last Admin: 03/21/17 08:37 Dose: 40 mg Gabapentin (Neurontin) 300 mg PO BID [facility] Last Admin: 03/21/17 08:32 Dose: 300 mg Insulin Detemir (Levemir) 18 units SC Q12 [facility] Insulin Human Regular (Humulin R) 0 units SC ACCU-CHECK [facility] PRN Reason: Protocol Last Admin: 03/21/17 12:17 Dose: 10 u Losartan Potassium (Cozaar) 25 mg PO DAILY [facility] Last Admin: 03/21/17 08:31 Dose: 25 mg Metoprolol Tartrate (Lopressor) 12.5 mg PO Q12 [facility] Last Admin: 03/21/17 08:31 Dose: 12.5 mg Tamsulosin HCl (Flomax) 0.4 mg PO DAILY [facility] Last Admin: 03/21/17 08:32 Dose: 0.4 mg Vitamin B Complex/Vit C/Folic Acid (Nephro-Gerald) 1 tab PO DAILY [facility] Last Admin: 03/21/17 08:30 Dose: 1 tab Discussed with PMD CXR
--- NOTE | 2017-03-21 15:25 | RAD ---
HISTORY: Shortness of breath COMPARISON: 03/13/2017. TECHNIQUE: Chest PA and lateral FINDINGS: LUNGS: There is mild pulmonary venous congestion and interstitial pulmonary edema. PLEURA: No significant pleural effusion identified. No pneumothorax apparent. CARDIOVASCULAR: The heart is enlarged. There is prominent central vasculature. Status post CABG. Atherosclerotic aortic arch calcifications are present. OSSEOUS STRUCTURES: No significant abnormalities. VISUALIZED UPPER ABDOMEN: Normal. OTHER FINDINGS: None. IMPRESSION: Findings are most compatible with mild congestive heart failure.
[2017-03-21 17:11] VITALS: RESP 20
--- NOTE | 2017-03-21 19:35 | CP.PCM.PN ---
Subjective - Date & Time of Evaluation Date of Evaluation: 03/21/17 Time of Evaluation: 14:00 - Subjective Subjective: SEEN ON RENAL F/U FEELS IMPROVED ABOVE NOTES ALL READ RENAL FUNCTION REMAINS STABLE .. e GFR 41 ML / M TOLERATING [place]ARTAN 25 MG POQD Objective - Vital Signs/Intake and Output Vital Signs (last 24 hours): Temp Pulse Resp BP Pulse Ox 97.2 F L 61 20 114/51 L 80 L 03/21/17 17:09 03/21/17 17:09 03/21/17 17:09 03/21/17 17:42 03/21/17 17:09 - Medications Medications: Current Medications Acetaminophen (Tylenol 325mg Tab) 650 mg PO Q4 PRN PRN Reason: Pain, Mild (1-3) Aspirin (Aspirin) 325 mg PO DAILY [facility] Last Admin: 03/21/17 08:44 Dose: 325 mg Atorvastatin Calcium (Lipitor) 40 mg PO HS [facility] Last Admin: 03/20/17 21:40 Dose: 40 mg Cholecalciferol (Vitamin D) 2,000 iu PO DAILY [facility] Last Admin: 03/21/17 08:32 Dose: 2,000 iu Clopidogrel Bisulfate (Plavix) 75 mg PO DAILY [facility] Last Admin: 03/21/17 08:31 Dose: 75 mg Docusate Sodium (Colace) 100 mg PO BID [facility] Last Admin: 03/21/17 17:42 Dose: 100 mg Doxercalciferol (Hectorol) 0.5 mcg PO DAILY [facility] Last Admin: 03/21/17 08:32 Dose: 0.5 mcg Furosemide (Lasix) 40 mg IV BID [facility] Last Admin: 03/21/17 17:42 Dose: 40 mg Gabapentin (Neurontin) 300 mg PO BID [facility] Last Admin: 03/21/17 17:42 Dose: 300 mg Insulin Detemir (Levemir) 18 units SC Q12 [facility] Insulin Human Regular (Humulin R) 0 units SC ACCU-CHECK [facility] PRN Reason: Protocol Last Admin: 03/21/17 17:41 Dose: 6 u Losartan Potassium (Cozaar) 25 mg PO DAILY [facility] Last Admin: 03/21/17 08:31 Dose: 25 mg Metoprolol Tartrate (Lopressor) 12.5 mg PO Q12 [facility] Last Admin: 03/21/17 08:31 Dose: 12.5 mg Tamsulosin HCl (Flomax) 0.4 mg PO DAILY [facility] Last Admin: 03/21/17 08:32 Dose: 0.4 mg Vitamin B Complex/Vit C/Folic Acid (Nephro-Gerald) 1 tab PO DAILY [facility] Last Admin: 03/21/17 08:30 Dose: 1 tab - Labs Labs: 03/20/17 18:55 Assessment and Plan - Assessment and Plan (Free Text) Assessment: CKD .. STABLE CHF .. DIASTOLIC MULTIPLE CO MORBIDITIES P : C/O CURRENT CARE C/O PRESENT MANAGEMENT
[2017-03-22] MEDS: Insulin Regular 100 units/ml SC SCH ×4 (06:50→22:11)
[2017-03-22] MEDS: Insulin Detemir 100 Units/ml Inj SC SCH ×2 (08:42→21:34)
[2017-03-22] MEDS: Multivitamin Vitamin B Complex (Nephro-Vite) Tab PO SCH (08:42)
--- NOTE | 2017-03-22 16:18 | CP.PCM.PN ---
Subjective - Date & Time of Evaluation Date of Evaluation: 03/22/17 Time of Evaluation: 16:15 - Subjective Subjective: Tolerating exercise on nasal O2 No c/p Objective - Vital Signs/Intake and Output Vital Signs (last 24 hours): Temp Pulse Resp BP Pulse Ox 97.9 F 73 20 107/59 L 96 03/22/17 08:38 03/22/17 08:42 03/22/17 08:38 03/22/17 08:42 03/22/17 08:38 - Medications Medications: Current Medications Acetaminophen (Tylenol 325mg Tab) 650 mg PO Q4 PRN PRN Reason: Pain, Mild (1-3) Aspirin (Aspirin) 325 mg PO DAILY [facility] Last Admin: 03/22/17 08:41 Dose: 325 mg Atorvastatin Calcium (Lipitor) 40 mg PO HS [facility] Last Admin: 03/21/17 22:02 Dose: 40 mg Cholecalciferol (Vitamin D) 2,000 iu PO DAILY [facility] Last Admin: 03/22/17 08:43 Dose: 2,000 iu Clopidogrel Bisulfate (Plavix) 75 mg PO DAILY [facility] Last Admin: 03/22/17 08:43 Dose: 75 mg Docusate Sodium (Colace) 100 mg PO BID [facility] Last Admin: 03/22/17 08:41 Dose: 100 mg Doxercalciferol (Hectorol) 0.5 mcg PO DAILY [facility] Last Admin: 03/22/17 08:41 Dose: 0.5 mcg Furosemide (Lasix) 40 mg IV BID [facility] Last Admin: 03/22/17 08:42 Dose: 40 mg Gabapentin (Neurontin) 300 mg PO BID [facility] Last Admin: 03/22/17 08:43 Dose: 300 mg Insulin Detemir (Levemir) 22 units SC Q12 [facility] Last Admin: 03/22/17 08:42 Dose: 22 unit Insulin Human Regular (Humulin R) 0 units SC ACCU-CHECK [facility] PRN Reason: Protocol Last Admin: 03/22/17 12:09 Dose: 8 u Losartan Potassium (Cozaar) 25 mg PO DAILY [facility] Last Admin: 03/22/17 08:41 Dose: 25 mg Metoprolol Tartrate (Lopressor) 12.5 mg PO Q12 [facility] Last Admin: 03/22/17 08:42 Dose: 12.5 mg Tamsulosin HCl (Flomax) 0.4 mg PO DAILY [facility] Last Admin: 03/22/17 08:41 Dose: 0.4 mg Vitamin B Complex/Vit C/Folic Acid (Nephro-Gerald) 1 tab PO DAILY [facility] Last Admin: 03/22/17 08:42 Dose: 1 tab - Labs Labs: 03/20/17 18:55 - Head Exam Head Exam: ATRAUMATIC - Eye Exam Pupil Exam: NORMAL ACCOMODATION - Neck Exam Neck Exam: Normal Inspection - Respiratory Exam Respiratory Exam: Rhonchi - Cardiovascular Exam Cardiovascular Exam: REGULAR RHYTHM - Extremities Exam Extremities Exam: Pedal Edema Assessment and Plan - Assessment and Plan (Free Text) Assessment: CVf, distolic Moderate COPD CKD Plan: Cont. Acetaminophen (Tylenol 325mg Tab) 650 mg PO Q4 PRN PRN Reason: Pain, Mild (1-3) Aspirin (Aspirin) 325 mg PO DAILY [facility] Last Admin: 03/22/17 08:41 Dose: 325 mg Atorvastatin Calcium (Lipitor) 40 mg PO HS [facility] Last Admin: 03/21/17 22:02 Dose: 40 mg Cholecalciferol (Vitamin D) 2,000 iu PO DAILY [facility] Last Admin: 03/22/17 08:43 Dose: 2,000 iu Clopidogrel Bisulfate (Plavix) 75 mg PO DAILY [facility] Last Admin: 03/22/17 08:43 Dose: 75 mg Docusate Sodium (Colace) 100 mg PO BID [facility] Last Admin: 03/22/17 08:41 Dose: 100 mg Doxercalciferol (Hectorol) 0.5 mcg PO DAILY [facility] Last Admin: 03/22/17 08:41 Dose: 0.5 mcg Furosemide (Lasix) 40 mg IV BID [facility] Last Admin: 03/22/17 08:42 Dose: 40 mg Gabapentin (Neurontin) 300 mg PO BID [facility] Last Admin: 03/22/17 08:43 Dose: 300 mg Insulin Detemir (Levemir) 22 units SC Q12 [facility] Last Admin: 03/22/17 08:42 Dose: 22 unit Insulin Human Regular (Humulin R) 0 units SC ACCU-CHECK [facility] PRN Reason: Protocol Last Admin: 03/22/17 12:09 Dose: 8 u Losartan Potassium (Cozaar) 25 mg PO DAILY [facility] Last Admin: 03/22/17 08:41 Dose: 25 mg Metoprolol Tartrate (Lopressor) 12.5 mg PO Q12 [facility] Last Admin: 03/22/17 08:42 Dose: 12.5 mg Tamsulosin HCl (Flomax) 0.4 mg PO DAILY [facility] Last Admin: 03/22/17 08:41 Dose: 0.4 mg Vitamin B Complex/Vit C/Folic Acid (Nephro-Gerald) 1 tab PO DAILY [facility] Last Admin: 03/22/17 08:42 Dose: 1 tab Advised to discuss futur intervention regarding with his manager residential Dr. Jerry
--- NOTE | 2017-03-22 17:00 | CP.PCM.PN ---
Subjective - Date & Time of Evaluation Date of Evaluation: 03/22/17 Time of Evaluation: 16:59 - Subjective Subjective: No new complains Objective - Vital Signs/Intake and Output Vital Signs (last 24 hours): Temp Pulse Resp BP Pulse Ox 97.9 F 73 20 107/59 L 96 03/22/17 08:38 03/22/17 08:42 03/22/17 08:38 03/22/17 08:42 03/22/17 08:38 - Medications Medications: Current Medications Acetaminophen (Tylenol 325mg Tab) 650 mg PO Q4 PRN PRN Reason: Pain, Mild (1-3) Aspirin (Aspirin) 325 mg PO DAILY [facility] Last Admin: 03/22/17 08:41 Dose: 325 mg Atorvastatin Calcium (Lipitor) 40 mg PO HS [facility] Last Admin: 03/21/17 22:02 Dose: 40 mg Cholecalciferol (Vitamin D) 2,000 iu PO DAILY [facility] Last Admin: 03/22/17 08:43 Dose: 2,000 iu Clopidogrel Bisulfate (Plavix) 75 mg PO DAILY [facility] Last Admin: 03/22/17 08:43 Dose: 75 mg Docusate Sodium (Colace) 100 mg PO BID [facility] Last Admin: 03/22/17 08:41 Dose: 100 mg Doxercalciferol (Hectorol) 0.5 mcg PO DAILY [facility] Last Admin: 03/22/17 08:41 Dose: 0.5 mcg Furosemide (Lasix) 40 mg IV BID [facility] Last Admin: 03/22/17 08:42 Dose: 40 mg Gabapentin (Neurontin) 300 mg PO BID [facility] Last Admin: 03/22/17 08:43 Dose: 300 mg Insulin Detemir (Levemir) 22 units SC Q12 [facility] Last Admin: 03/22/17 08:42 Dose: 22 unit Insulin Human Regular (Humulin R) 0 units SC ACCU-CHECK [facility] PRN Reason: Protocol Last Admin: 03/22/17 12:09 Dose: 8 u Losartan Potassium (Cozaar) 25 mg PO DAILY [facility] Last Admin: 03/22/17 08:41 Dose: 25 mg Metoprolol Tartrate (Lopressor) 12.5 mg PO Q12 [facility] Last Admin: 03/22/17 08:42 Dose: 12.5 mg Tamsulosin HCl (Flomax) 0.4 mg PO DAILY [facility] Last Admin: 03/22/17 08:41 Dose: 0.4 mg Vitamin B Complex/Vit C/Folic Acid (Nephro-Gerald) 1 tab PO DAILY [facility] Last Admin: 03/22/17 08:42 Dose: 1 tab - Labs Labs: 03/20/17 18:55 - Constitutional Appears: Chronically Ill - Head Exam Head Exam: ATRAUMATIC, NORMAL INSPECTION - Eye Exam Eye Exam: Normal appearance - ENT Exam ENT Exam: Mucous Membranes Moist - Neck Exam Neck Exam: Full ROM - Respiratory Exam Respiratory Exam: Clear to Ausculation Bilateral - Cardiovascular Exam Cardiovascular Exam: REGULAR RHYTHM, +S1, +S2 - GI/Abdominal Exam GI & Abdominal Exam: Normal Bowel Sounds - Extremities Exam Extremities Exam: Pedal Edema - Neurological Exam Neurological Exam: Alert, Awake, CN II-XII Intact Assessment and Plan (1) Debility Status: Acute (2) BMI greater than 40 Status: Chronic (3) CHF (congestive heart failure) Status: Chronic (4) Diabetes 1.5, managed as type 2 Status: Chronic (5) Oxygen desaturation during sleep Status: Chronic (6) Aortic stenosis Status: Chronic (7) CKD stage G3b/A1, 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
[2017-03-22 18:55] LABS: CALCIUM 8.8 mg/dL (8.4-10.2)
[2017-03-23] MEDS: Insulin Regular 100 units/ml SC SCH ×4 (06:44→22:15)
[2017-03-23] MEDS: Insulin Detemir 100 Units/ml Inj SC SCH ×2 (08:51→21:48)
[2017-03-23] MEDS: Multivitamin Vitamin B Complex (Nephro-Vite) Tab PO SCH (08:54)
--- NOTE | 2017-03-23 11:54 | CP.PCM.PN ---
Subjective - Date & Time of Evaluation Date of Evaluation: 03/23/17 Time of Evaluation: 11:55 - Subjective Subjective: Comfortable Objective - Vital Signs/Intake and Output Vital Signs (last 24 hours): Temp Pulse Resp BP Pulse Ox 97.7 F 83 20 119/61 95 03/23/17 08:08 03/23/17 08:52 03/23/17 08:08 03/23/17 08:52 03/23/17 08:08 - Medications Medications: Current Medications Acetaminophen (Tylenol 325mg Tab) 650 mg PO Q4 PRN PRN Reason: Pain, Mild (1-3) Last Admin: 03/23/17 08:48 Dose: 650 mg Aspirin (Aspirin) 325 mg PO DAILY [facility] Last Admin: 03/23/17 08:49 Dose: 325 mg Atorvastatin Calcium (Lipitor) 40 mg PO HS [facility] Last Admin: 03/22/17 21:23 Dose: 40 mg Cholecalciferol (Vitamin D) 2,000 iu PO DAILY [facility] Last Admin: 03/23/17 08:52 Dose: 2,000 iu Clopidogrel Bisulfate (Plavix) 75 mg PO DAILY [facility] Last Admin: 03/23/17 08:53 Dose: 75 mg Docusate Sodium (Colace) 100 mg PO BID [facility] Last Admin: 03/23/17 08:49 Dose: 100 mg Doxercalciferol (Hectorol) 0.5 mcg PO DAILY [facility] Last Admin: 03/23/17 08:50 Dose: 0.5 mcg Furosemide (Lasix) 40 mg IV BID [facility] Last Admin: 03/23/17 08:50 Dose: 40 mg Gabapentin (Neurontin) 300 mg PO BID [facility] Last Admin: 03/23/17 08:54 Dose: 300 mg Insulin Detemir (Levemir) 26 units SC Q12 [facility] Insulin Human Regular (Humulin R) 0 units SC ACCU-CHECK [facility] PRN Reason: Protocol Last Admin: 03/23/17 06:44 Dose: 2 u Losartan Potassium (Cozaar) 25 mg PO DAILY [facility] Last Admin: 03/23/17 08:50 Dose: 25 mg Metoprolol Tartrate (Lopressor) 12.5 mg PO Q12 [facility] Last Admin: 03/23/17 08:52 Dose: 12.5 mg Tamsulosin HCl (Flomax) 0.4 mg PO DAILY [facility] Last Admin: 03/23/17 08:50 Dose: 0.4 mg Vitamin B Complex/Vit C/Folic Acid (Nephro-Gerald) 1 tab PO DAILY [facility] Last Admin: 03/23/17 08:54 Dose: 1 tab - Labs Labs: 03/22/17 18:30 - Constitutional Appears: Chronically Ill - Head Exam Head Exam: ATRAUMATIC, NORMAL INSPECTION, NORMOCEPHALIC - Eye Exam Eye Exam: Normal appearance - ENT Exam ENT Exam: Mucous Membranes Moist - Neck Exam Neck Exam: Full ROM - Cardiovascular Exam Cardiovascular Exam: REGULAR RHYTHM, +S1, +S2 - GI/Abdominal Exam GI & Abdominal Exam: Normal Bowel Sounds - Extremities Exam Extremities Exam: Pedal Edema - Neurological Exam Neurological Exam: Alert, Awake, CN II-XII Intact Assessment and Plan (1) Debility Status: Acute (2) BMI greater than 40 Status: Chronic (3) CHF (congestive heart failure) Status: Chronic (4) Diabetes 1.5, managed as type 2 Status: Chronic (5) Oxygen desaturation during sleep Status: Chronic (6) Aortic stenosis Status: Chronic (7) CKD stage G3b/A1, 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
--- NOTE | 2017-03-23 15:59 | CP.PCM.PN ---
Subjective - Date & Time of Evaluation Date of Evaluation: 03/23/17 Time of Evaluation: 15:56 - Subjective Subjective: SOB improved No c/p Objective - Vital Signs/Intake and Output Vital Signs (last 24 hours): Temp Pulse Resp BP Pulse Ox 97.7 F 83 20 119/61 95 03/23/17 08:08 03/23/17 08:52 03/23/17 08:08 03/23/17 08:52 03/23/17 08:08 - Medications Medications: Current Medications Acetaminophen (Tylenol 325mg Tab) 650 mg PO Q4 PRN PRN Reason: Pain, Mild (1-3) Last Admin: 03/23/17 08:48 Dose: 650 mg Aspirin (Aspirin) [address] [facility] Last Admin: 03/23/17 08:49 Dose: 325 mg Atorvastatin Calcium (Lipitor) [address] [facility] Last Admin: 03/22/17 21:23 Dose: 40 mg Cholecalciferol (Vitamin D) 2,[address] [facility] Last Admin: 03/23/17 08:52 Dose: 2,000 iu Clopidogrel Bisulfate (Plavix) [address] [facility] Last Admin: 03/23/17 08:53 Dose: 75 mg Docusate Sodium (Colace) [address] [facility] Last Admin: 03/23/17 08:49 Dose: 100 mg Doxercalciferol (Hectorol) 0.[address] [facility] Last Admin: 03/23/17 08:50 Dose: 0.5 mcg Furosemide (Lasix) [address] [facility] Gabapentin (Neurontin) [address] [facility] Last Admin: 03/23/17 08:54 Dose: 300 mg Insulin Detemir (Levemir) [address] [facility] Insulin Human Regular (Humulin R) 0 units SC ACCU-CHECK [facility] PRN Reason: Protocol Last Admin: 03/23/17 12:24 Dose: 8 u Losartan Potassium (Cozaar) [address] [facility] Last Admin: 03/23/17 08:50 Dose: 25 mg Metoprolol Tartrate (Lopressor) 12.[address] [facility] Last Admin: 03/23/17 08:52 Dose: 12.5 mg Tamsulosin HCl (Flomax) 0.[address] [facility] Last Admin: 03/23/17 08:50 Dose: 0.4 mg Vitamin B Complex/Vit C/Folic Acid (Nephro-Gerald) [address] [facility] Last Admin: 03/23/17 08:54 Dose: 1 tab - Labs Labs: 03/22/17 18:30 - Head Exam Head Exam: NORMAL INSPECTION - Eye Exam Eye Exam: Normal appearance - Neck Exam Neck Exam: Normal Inspection - Respiratory Exam Respiratory Exam: Rhonchi - Cardiovascular Exam Cardiovascular Exam: REGULAR RHYTHM - GI/Abdominal Exam GI & Abdominal Exam: Soft - Extremities Exam Extremities Exam: Pedal Edema Assessment and Plan - Assessment and Plan (Free Text) Assessment: CVF, distolic Moderate COPD CKD Uncontrolled DM Plan: Plan: Cont. Aspirin (Aspirin) 325 mg PO DAILY [facility] Atorvastatin Calcium (Lipitor) [address] [facility] Clopidogrel Bisulfate (Plavix) [address] [facility] Docusate Sodium (Colace) [address] [facility] Doxercalciferol (Hectorol) 0.[address] [facility] Furosemide (Lasix) [address] [facility] Gabapentin (Neurontin) [address] [facility] Losartan Potassium (Cozaar) [address] [facility] Metoprolol Tartrate (Lopressor) 12.[address] [facility] Tamsulosin HCl (Flomax) 0.[address] [facility] Vitamin B Complex/Vit C/Folic Acid (Nephro-Gerald) [address] [facility]
[2017-03-24] MEDS: Insulin Regular 100 units/ml SC SCH ×4 (06:46→22:21)
[2017-03-24] MEDS: Insulin Detemir 100 Units/ml Inj SC SCH ×2 (08:29→21:27)
[2017-03-24] MEDS: Multivitamin Vitamin B Complex (Nephro-Vite) Tab PO SCH (08:31)
--- NOTE | 2017-03-24 11:43 | CP.PCM.PN ---
Subjective - Date & Time of Evaluation Date of Evaluation: 03/24/17 Time of Evaluation: 11:43 - Subjective Subjective: Confotrable Objective - Vital Signs/Intake and Output Vital Signs (last 24 hours): Temp Pulse Resp BP Pulse Ox 98.2 F 66 20 122/41 L 84 L 03/24/17 08:36 03/24/17 08:36 03/24/17 08:36 03/24/17 08:36 03/24/17 08:36 - Medications Medications: Current Medications Acetaminophen (Tylenol 325mg Tab) 650 mg PO Q4 PRN PRN Reason: Pain, Mild (1-3) Last Admin: 03/23/17 08:48 Dose: 650 mg Aspirin (Aspirin) 325 mg PO DAILY [facility] Last Admin: 03/24/17 08:22 Dose: 325 mg Atorvastatin Calcium (Lipitor) 40 mg PO HS [facility] Last Admin: 03/23/17 21:53 Dose: 40 mg Cholecalciferol (Vitamin D) 2,000 iu PO DAILY [facility] Last Admin: 03/24/17 08:33 Dose: 2,000 iu Clopidogrel Bisulfate (Plavix) 75 mg PO DAILY [facility] Last Admin: 03/24/17 08:32 Dose: 75 mg Docusate Sodium (Colace) 100 mg PO BID [facility] Last Admin: 03/24/17 08:22 Dose: 100 mg Doxercalciferol (Hectorol) 0.5 mcg PO DAILY [facility] Last Admin: 03/24/17 08:24 Dose: 0.5 mcg Furosemide (Lasix) 40 mg IV Q12 [facility] Last Admin: 03/24/17 08:25 Dose: 40 mg Gabapentin (Neurontin) 300 mg PO BID [facility] Last Admin: 03/24/17 08:32 Dose: 300 mg Insulin Detemir (Levemir) 26 units SC Q12 [facility] Last Admin: 03/24/17 08:29 Dose: 26 u Insulin Human Regular (Humulin R) 0 units SC ACCU-CHECK [facility] PRN Reason: Protocol Last Admin: 03/24/17 06:46 Dose: 2 u Losartan Potassium (Cozaar) 25 mg PO DAILY [facility] Last Admin: 03/24/17 08:23 Dose: 25 mg Metoprolol Tartrate (Lopressor) 12.5 mg PO Q12 [facility] Last Admin: 03/24/17 08:31 Dose: 12.5 mg Tamsulosin HCl (Flomax) 0.4 mg PO DAILY [facility] Last Admin: 03/24/17 08:24 Dose: 0.4 mg Vitamin B Complex/Vit C/Folic Acid (Nephro-Gerald) 1 tab PO DAILY [facility] Last Admin: 03/24/17 08:31 Dose: 1 tab - Labs Labs: 03/24/17 09:30 - Constitutional Appears: Chronically Ill - Head Exam Head Exam: ATRAUMATIC, NORMAL INSPECTION, NORMOCEPHALIC - Eye Exam Eye Exam: Normal appearance Pupil Exam: PERRL - ENT Exam ENT Exam: Mucous Membranes Moist - Neck Exam Neck Exam: Full ROM, Normal Inspection - Respiratory Exam Respiratory Exam: Decreased Breath Sounds - Cardiovascular Exam Cardiovascular Exam: REGULAR RHYTHM, +S1, +S2 - GI/Abdominal Exam GI & Abdominal Exam: Normal Bowel Sounds - Extremities Exam Extremities Exam: Pedal Edema - Neurological Exam Neurological Exam: Alert, Awake, CN II-XII Intact, Oriented x3 Assessment and Plan (1) Debility Status: Acute (2) BMI greater than 40 Status: Chronic (3) CHF (congestive heart failure) Status: Chronic (4) Diabetes 1.5, managed as type 2 Status: Chronic (5) Oxygen desaturation during sleep Status: Chronic (6) Aortic stenosis Status: Chronic (7) CKD stage G3b/A1, 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 - Assessment and Plan (Free Text) Plan: Continue present rx
--- NOTE | 2017-03-24 15:19 | CP.PCM.PN ---
Subjective - Date & Time of Evaluation Date of Evaluation: 03/24/17 Time of Evaluation: 15:17 - Subjective Subjective: Exercised without SOB or C/P Objective - Vital Signs/Intake and Output Vital Signs (last 24 hours): Temp Pulse Resp BP Pulse Ox 98.2 F 66 20 122/41 L 84 L 03/24/17 08:36 03/24/17 08:36 03/24/17 08:36 03/24/17 08:36 03/24/17 08:36 - Medications Medications: Current Medications Acetaminophen (Tylenol 325mg Tab) 650 mg PO Q4 PRN PRN Reason: Pain, Mild (1-3) Last Admin: 03/23/17 08:48 Dose: 650 mg Aspirin (Aspirin) 325 mg PO DAILY [facility] Last Admin: 03/24/17 08:22 Dose: 325 mg Atorvastatin Calcium (Lipitor) 40 mg PO HS [facility] Last Admin: 03/23/17 21:53 Dose: 40 mg Cholecalciferol (Vitamin D) 2,000 iu PO DAILY [facility] Last Admin: 03/24/17 08:33 Dose: 2,000 iu Clopidogrel Bisulfate (Plavix) 75 mg PO DAILY [facility] Last Admin: 03/24/17 08:32 Dose: 75 mg Docusate Sodium (Colace) 100 mg PO BID [facility] Last Admin: 03/24/17 08:22 Dose: 100 mg Doxercalciferol (Hectorol) 0.5 mcg PO DAILY [facility] Last Admin: 03/24/17 08:24 Dose: 0.5 mcg Furosemide (Lasix) 40 mg IV Q12 [facility] Last Admin: 03/24/17 08:25 Dose: 40 mg Gabapentin (Neurontin) 300 mg PO BID [facility] Last Admin: 03/24/17 08:32 Dose: 300 mg Insulin Detemir (Levemir) 26 units SC Q12 [facility] Last Admin: 03/24/17 08:29 Dose: 26 u Insulin Human Regular (Humulin R) 0 units SC ACCU-CHECK [facility] PRN Reason: Protocol Last Admin: 03/24/17 12:18 Dose: 6 u Losartan Potassium (Cozaar) 25 mg PO DAILY [facility] Last Admin: 03/24/17 08:23 Dose: 25 mg Metoprolol Tartrate (Lopressor) 12.5 mg PO Q12 [facility] Last Admin: 03/24/17 08:31 Dose: 12.5 mg Tamsulosin HCl (Flomax) 0.4 mg PO DAILY [facility] Last Admin: 03/24/17 08:24 Dose: 0.4 mg Vitamin B Complex/Vit C/Folic Acid (Nephro-Gerald) 1 tab PO DAILY [facility] Last Admin: 03/24/17 08:31 Dose: 1 tab - Labs Labs: 03/24/17 09:30 - Constitutional Appears: Well - Head Exam Head Exam: NORMOCEPHALIC - Eye Exam Eye Exam: Normal appearance - Neck Exam Neck Exam: Normal Inspection - Respiratory Exam Respiratory Exam: NORMAL BREATHING PATTERN - Cardiovascular Exam Cardiovascular Exam: REGULAR RHYTHM - Extremities Exam Extremities Exam: Pedal Edema Assessment and Plan - Assessment and Plan (Free Text) Assessment: CHF, distolic Rt. sided failure Moderate COPD CKD Uncontrolled DM Plan: Cont. Aspirin (Aspirin) 325 mg PO DAILY [facility] Atorvastatin Calcium (Lipitor) 40 mg PO HS [facility] Clopidogrel Bisulfate (Plavix) 75 mg PO DAILY [facility] Docusate Sodium (Colace) 100 mg PO BID [facility] Furosemide (Lasix) 40 mg IV BID [facility] Gabapentin (Neurontin) 300 mg PO BID [facility] Losartan Potassium (Cozaar) 25 mg PO DAILY [facility] Metoprolol Tartrate (Lopressor) 12.5 mg PO Q12 [facility]
--- NOTE | 2017-03-24 20:00 | CP.PCM.PN ---
Subjective - Date & Time of Evaluation Date of Evaluation: 03/24/17 Time of Evaluation: 15:00 - Subjective Subjective: SEEN ON RENAL F/U FEELS IMPROVED STILL WITH L E EDEMA .. BUT LESS ALL PREVIOUS EMR REVIEWED Objective - Vital Signs/Intake and Output Vital Signs (last 24 hours): Temp Pulse Resp BP Pulse Ox 97.5 F L 64 20 123/66 90 L 03/24/17 19:34 03/24/17 19:34 03/24/17 19:34 03/24/17 19:34 03/24/17 19:34 - Medications Medications: Current Medications Acetaminophen (Tylenol 325mg Tab) 650 mg PO Q4 PRN PRN Reason: Pain, Mild (1-3) Last Admin: 03/23/17 08:48 Dose: 650 mg Aspirin (Aspirin) 325 mg PO DAILY [facility] Last Admin: 03/24/17 08:22 Dose: 325 mg Atorvastatin Calcium (Lipitor) 40 mg PO HS [facility] Last Admin: 03/23/17 21:53 Dose: 40 mg Cholecalciferol (Vitamin D) 2,000 iu PO DAILY [facility] Last Admin: 03/24/17 08:33 Dose: 2,000 iu Clopidogrel Bisulfate (Plavix) 75 mg PO DAILY [facility] Last Admin: 03/24/17 08:32 Dose: 75 mg Docusate Sodium (Colace) 100 mg PO BID [facility] Last Admin: 03/24/17 17:11 Dose: 100 mg Doxercalciferol (Hectorol) 0.5 mcg PO DAILY [facility] Last Admin: 03/24/17 08:24 Dose: 0.5 mcg Furosemide (Lasix) 40 mg IV Q12 [facility] Last Admin: 03/24/17 08:25 Dose: 40 mg Gabapentin (Neurontin) 300 mg PO BID [facility] Last Admin: 03/24/17 17:12 Dose: 300 mg Insulin Detemir (Levemir) 26 units SC Q12 [facility] Last Admin: 03/24/17 08:29 Dose: 26 u Insulin Human Regular (Humulin R) 0 units SC ACCU-CHECK [facility] PRN Reason: Protocol Last Admin: 03/24/17 17:11 Dose: 6 u Losartan Potassium (Cozaar) 25 mg PO DAILY [facility] Last Admin: 03/24/17 08:23 Dose: 25 mg Metoprolol Tartrate (Lopressor) 12.5 mg PO Q12 [facility] Last Admin: 03/24/17 08:31 Dose: 12.5 mg Tamsulosin HCl (Flomax) 0.4 mg PO DAILY [facility] Last Admin: 03/24/17 08:24 Dose: 0.4 mg Vitamin B Complex/Vit C/Folic Acid (Nephro-Gerald) 1 tab PO DAILY [facility] Last Admin: 03/24/17 08:31 Dose: 1 tab - Labs Labs: 03/24/17 09:30 Assessment and Plan - Assessment and Plan (Free Text) Assessment: CKD .. RENAL FUNCTION STABLE ANEMIA OF CKD .. H/H STABLE CHF .. EDEMA BETTER .. ON FR PLUS LASIX 40 IVP BID P : C/O CURRENT CARE TOLERATING LOSATRAN AT 25 MG POQD
[2017-03-25] MEDS: Insulin Regular 100 units/ml SC SCH ×2 (06:57→11:41)
[2017-03-25 07:36] LABS: CALCIUM 8.6 mg/dL (8.4-10.2)
[2017-03-25 07:38] LABS: HEMOGLOBIN 12.3 g/dL (12.0-18.0); MEAN CELL VOLUME 88.9 fl (80.0-94.0); MEAN CORPUSCULAR HEMOGLOBIN 28.6 pg (27.0-31.0); MEAN CORPUSCULAR HGB CONC 32.2 g/dL (33.0-37.0); RBC 4.31 Mil/uL (4.40-5.90); RED CELL DISTRIBUTION WIDTH 15.7 % (11.5-14.5); WHITE BLOOD COUNT 5.4 K/uL (4.8-10.8)
[2017-03-25] MEDS: Insulin Detemir 100 Units/ml Inj SC SCH (08:23)
[2017-03-25 08:25] VITALS: BP 114/61; PULSE 64
[2017-03-25] MEDS: Multivitamin Vitamin B Complex (Nephro-Vite) Tab PO SCH (09:42)
[2017-03-25 10:22] VITALS: TEMP 97; O2SAT 93
--- NOTE | 2017-03-25 14:59 | CP.PCM.DIS ---
Provider - Provider Date of Admission: 03/16/17 21:19 Attending physician: Fernie Cabral MD Time Spent in preparation of Discharge (in minutes): 30 Diagnosis - Discharge Diagnosis (1) Debility Status: Acute (2) BMI greater than 40 Status: Chronic (3) CHF (congestive heart failure) Status: Chronic (4) Diabetes 1.5, managed as type 2 Status: Chronic (5) Oxygen desaturation during sleep Status: Chronic (6) Aortic stenosis Status: Chronic (7) CKD stage G3b/A1, 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 Hospital Course - Lab Results Lab Results: Most Recent Lab Values WBC 5.4 K/uL (4.8-10.8) 03/25/17 07:00 RBC 4.31 Mil/uL (4.40-5.90) L 03/25/17 07:00 Hgb 12.3 g/dL (12.0-18.0) 03/25/17 07:00 Hct 38.4 % (35.0-51.0) 03/25/17 07:00 MCV 88.9 fl (80.0-94.0) 03/25/17 07:00 MCH 28.6 pg (27.0-31.0) 03/25/17 07:00 MCHC 32.2 g/dL (33.0-37.0) L 03/25/17 07:00 RDW 15.7 % (11.5-14.5) H 03/25/17 07:00 Plt Count 173 K/uL (130-400) 03/25/17 07:00 Sodium 139 mmol/l (132-148) 03/25/17 07:00 Potassium 3.9 MMOL/L (3.6-5.0) 03/25/17 07:00 Chloride 99 mmol/L (98-107) 03/25/17 07:00 Carbon Dioxide 32 mmol/L (22-30) H 03/25/17 07:00 Anion Gap 12 (10-20) 03/25/17 07:00 BUN 33 mg/dl (9-20) H 03/25/17 07:00 Creatinine 1.7 mg/dL (0.8-1.5) H 03/25/17 07:00 Est GFR ( Amer) 47 03/25/17 07:00 Est GFR (Non-Af Amer) 39 03/25/17 07:00 POC Glucose (mg/dL) 329 mg/dL (65-110) H 03/25/17 11:11 Random Glucose 207 mg/dL (75-110) H 03/25/17 07:00 Calcium 8.6 mg/dL (8.4-10.2) 03/25/17 07:00 - Hospital Course Hospital Course: Patient 86 y/o gentleman presented in ER via EMS with the CC of SOB. He c/o gradual onset of dyspnea with orthopnea and paroxysmal nocturnal dyspnea. Dyspnea at rest and severe leg edema. weight gain . The present dyspnea is worse than previous episodes. He c/o CP, cough, and generalized weakness. He has severe hx of CAD with S/P GABG, HTN, uncontrolled diabetes. He responded well to PT. Will dc home on home care. F/U in my office in 2 days. Discharge Exam - Head Exam Head Exam: NORMAL INSPECTION, NORMOCEPHALIC - Eye Exam Eye Exam: Normal appearance, PERRL - Neck Exam Neck exam: Full Rom - Respiratory Exam Respiratory Exam: Clear to PA & Lateral - Cardiovascular Exam Cardiovascular Exam: REGULAR RHYTHM, +S1, +S2 - GI/Abdominal Exam GI & Abdominal Exam: Normal Bowel Sounds - Extremities Exam Extremities exam: pedal edema - Neurological Exam Neurological exam: Alert, CN II-XII Intact, Oriented x3, Reflexes Normal - Psychiatric Exam Psychiatric exam: Normal Affect - Skin Skin Exam: Normal Color Discharge Plan - Follow Up Plan Condition: GOOD Disposition: HOME/ ROUTINE
== END 2017-03-25 15:20 | disposition home health service (06) | DRG 291 ==
LOC: H.TCU 21:19
PROVIDERS: ADMIT Internal Medicine; ATTEND Internal Medicine
PROC: F07M6FZ Therapeutic Exercise Treatment of Musculoskeletal System - Whole Body using Assistive, Adaptive, Supportive or Protective Equipment (ICD-10-PCS; principal; 2017-03-17)
PROC: F08Z4FZ Home Management Treatment using Assistive, Adaptive, Supportive or Protective Equipment (ICD-10-PCS; 2017-03-17)
PROC: F07Z9FZ Gait Training/Functional Ambulation Treatment using Assistive, Adaptive, Supportive or Protective Equipment (ICD-10-PCS; 2017-03-17)
DX: I13.0 Hypertensive heart and chronic kidney disease with heart failure and stage 1 through stage 4 chronic kidney disease, or unspecified chronic kidney disease (principal); I50.31 Acute diastolic (congestive) heart failure; E88.89 Other specified metabolic disorders; E11.22 Type 2 diabetes mellitus with diabetic chronic kidney disease; Z68.41 Body mass index [BMI] 40.0-44.9, adult; E11.65 Type 2 diabetes mellitus with hyperglycemia; D63.1 Anemia in chronic kidney disease; E66.01 Morbid (severe) obesity due to excess calories; E88.81 Metabolic syndrome and other insulin resistance; I25.10 Atherosclerotic heart disease of native coronary artery without angina pectoris; I25.2 Old myocardial infarction; I35.0 Nonrheumatic aortic (valve) stenosis; J44.9 Chronic obstructive pulmonary disease, unspecified; N18.3 Chronic kidney disease, stage 3 (moderate); N40.0 Benign prostatic hyperplasia without lower urinary tract symptoms; Z79.899 Other long term (current) drug therapy; Z82.5 Family history of asthma and other chronic lower respiratory diseases; Z83.3 Family history of diabetes mellitus; Z87.891 Personal history of nicotine dependence; Z95.1 Presence of aortocoronary bypass graft; Z95.5 Presence of coronary angioplasty implant and graft; Z99.81 Dependence on supplemental oxygen; G62.9 Polyneuropathy, unspecified